=== PATIENT | female | born 1960 | race Caucasian/White ===

== ENCOUNTER 2016-07-16 18:52 | Inpatient (IN) ==
[2016-07-16 19:27] LABS: Bilirubin,Urine Negative (Negative); Blood,Urine Negative (Negative); Clarity,Urine Clear (Clear); Color,Urine Yellow (Yellow); Glucose,Urine (UA) Normal (Normal); Ketones,Urine Negative (Negative); Leukocyte Esterase,Urine Negative (Negative); Nitrite,Urine Negative (Negative); Protein,Urine Negative (Neg-Trace); Urobilinogen,Urine Normal (Normal)
[2016-07-16] MEDS ORDERED: *HR* OxyCODONE/APAP 5/325 TABLET PO ONE (19:29)
[2016-07-16 19:34] LABS: Amphetamine Screen,Urine Negative ng/mL (Cutoff=1000); Barbiturate Screen,Urine Negative ng/mL (Cutoff=200); Benzodiazepines Screen,Urine Positive ng/mL (Cutoff=200); Cannabinoid Screen,Urine Negative ng/mL (Cutoff = 50); Cocaine Screen,Urine Negative ng/mL (Cutoff= 300); Opiate Screen,Urine Negative ng/mL (Cutoff=300); Phencyclidine Screen,Urine Negative ng/mL (Cutoff=25)
[2016-07-16 19:38] LABS: Basophils % 0.2 %; Eosinophils # 0.1 K/mcL (0.0-0.6); Eosinophils % 0.9 %; Hemoglobin 13.8 g/dL (11.5-15.4); Immature Granulocytes % 0.4 % (0-4); Lymphocytes # 2.2 K/mcL (0.6-4.6); Lymphocytes % 40.1 %; Mean Corpuscular HGB Conc 32.9 g/dL (31.6-35.5); Mean Corpuscular Hemoglobin 30.7 pg (28.0-33.3); Mean Corpuscular Volume 93.5 fL (83.0-100.0); Mean Platelet Volume 10.6 fL (9.4-12.4); Monocytes # 0.4 K/mcL (0.0-1.3); Monocytes % 7.9 %; Neutrophils # 2.8 K/mcL (1.6-8.9); Platelet Count 260 K/mcL (140-400); Red Blood Count 4.49 M/mcL (3.82-4.97); Red Cell Distribution Width 13.3 % (11.5-14.5); Segmented Neutrophils % 50.5 %
[2016-07-16 19:53] LABS: BUN/Creatinine Ratio 7 (6-26); Calcium 10.1 mg/dL (8.6-10.8); Carbon Dioxide 30 mEq/L (19-29); Chloride 101 mEq/L (98-109); Glucose 92 mg/dL (70-99); Osmolality,Calculated 287 (280-300); Potassium 4.6 mEq/L (3.5-4.5); Sodium 140 mEq/L (136-145); eGFR For African Americans > 60 (> 60); eGFR For Non-African Americans > 60 (> 60)
[2016-07-16 19:56] LABS: Acetaminophen < 1.0 mcg/mL (10-30); Blood Urea Nitrogen 5 mg/dL (7-20); Ethanol < 10 mg/dL (0-10)
[2016-07-16 19:58] LABS: Salicylate < 5.0 mg/dL (15-30)
--- NOTE | 2016-07-16 20:21 | Emergency Department Note ---
Disposition Clinical Impression: Suicidal ideation Disposition: Admitted As Inpatient Condition: Good Time of Disposition: 22:45 Psych HPI - General Chief Complaint: ED Psychiatric Symptoms Stated Complaint: SI Source: patient Mode of arrival: ambulatory Limitations: no limitations Nursing Notes Reviewed: Yes Vital Signs Reviewed: Yes - History of Present Illness HPI Narrative: 56-year-old female who presents with concerns of suicidal ideation. Patient states she had thoughts about slitting her wrists called the emergency Department prior to arrival to see how long it would take her to if she slit her wrist. Patient denies ingestion of medications or other illicit drugs. Patient states he did not attempt to ambulate but had brought of multiple plans. Patient has a history of bipolar disorder. - Related Data Home Medications Medication Instructions Recorded Confirmed ClonazePAM [Klonopin] 1 mg PO QID 03/19/16 07/17/16 Divalproex (12 HR) [Depakote (12 1,000 mg PO HS 03/19/16 07/17/16 HR)] Doxepin [Sinequan] 150 mg PO HS 03/19/16 07/17/16 LevETIRAcetam [Keppra] 1,000 mg PO HS 03/19/16 07/17/16 Levothyroxine [Synthroid] 100 mcg PO DAILY 03/19/16 07/17/16 Oxycodone HCl 15 mg PO QID PRN 03/19/16 07/17/16 Ranitidine HCl [Zantac 75] 150 mg PO BID 03/19/16 07/17/16 Allergies Allergy/AdvReac Type Severity Reaction Status Date / Time diphenhydramine AdvReac See Verified 03/18/16 22:23 [From Pamela] Comments All systems ED: reviewed and negative except as stated. Constitutional: Denies: fever, chills, weakness Cardiovascular: Denies: chest pain, palpitations Respiratory: Denies: cough, dyspnea, wheezes Gastrointestinal: Denies: abdominal pain, nausea, vomiting Genitourinary: Denies: urgency, dysuria, frequency Musculoskeletal: Denies: back pain, neck pain Integumentary: Denies: rash, abrasion Neurological: Denies: headache, weakness, numbness Psychiatric: Reports: anxiety, depression, suicidal thoughts. Denies: homicidal thoughts Past Medical History - Past Medical History Attestation: Yes The following information was validated with the patient. Source: patient Medical history: Reports: no medical history Psychiatric history: Reports: bipolar, prior suicide attempt, previous psychiatric hospitalization - Social History Smoking Status: Current every day smoker Smokeless Tobacco Status: No Alcohol use: Reports: none Drug use: Reports: cocaine, opiates Physical Exam General: Alert and in no acute distress Skin: Warm, dry, intact Head: Normocephalic and atraumatic Neck: Supple, trachea midline and no tenderness Cardiovascular: RRR, no murmur, normal perfusion Respiratory: CTAB, no wheezing, cough, or respiratory distress Musculoskeletal: Normal strength, no tenderness, swelling or deformity GI: Soft, nontender, nondistended. Bowel sounds present Neuro: A&O to person, place, time and situation. No focal deficits noted on exam Psychiatric: cooperative and appropriate mood and affect. - General Limitations: no limitations General appearance: alert, in no apparent distress Course Vital Signs Temperature 98.3 F 07/16/16 19:15 Pulse Rate 93 07/16/16 19:15 Respiratory Rate 18 07/16/16 19:15 Blood Pressure 165/97 07/16/16 19:15 O2 Sat by Pulse Oximetry 96 07/16/16 19:15 Temperature 97.6 F 07/17/16 09:00 Pulse Rate 88 07/17/16 09:00 Respiratory Rate 16 07/17/16 09:00 Blood Pressure 111/74 07/17/16 09:00 O2 Sat by Pulse Oximetry 96 07/16/16 19:15 Oxygen Delivery Oxygen Delivery Room Air Psych - MDM Narrative Medical decision making narrative: Patient evaluated by [facility] and found to need admission for further evaluation of suicidal ideation. Awaiting for admission the patient became very agitated. She tried multiple times to run down the hallway to escape the emergency department she was warned multiple times that she needs to stay in her room. Patient became aggressive towards staff and was a danger to herself, she was sedated and restrained using Ativan, Haldol and soft restraints. Patient has an allergy to Benadryl which she states she became hypotensive. Patient was reevaluated multiple times after using sedation and restraints. She gradually became more calm and redirectable and she was eventually admitted to one with stable vital signs, awake, alert. - Medical Records Medical records reviewed: Yes I reviewed the patient's medical records. - Lab Data Lab results reviewed: Yes I reviewed the patient's lab results. Result diagrams: 07/16/16 19:32 07/16/16 19:32 Lab Results 07/16/16 07/16/16 07/16/16 Range/Units 18:55 18:55 19:32 WBC 5.5 (4.3-11.1) K/mcL RBC 4.49 (3.82-4.97) M/mcL Hgb 13.8 (11.5-15.4) g/dL Hct 42.0 (35.3-44.9) % MCV 93.5 (83.0-100.0) fL MCH 30.7 (28.0-33.3) pg MCHC 32.9 (31.6-35.5) g/dL RDW 13.3 (11.5-14.5) % Plt Count 260 (140-400) K/mcL MPV 10.6 (9.4-12.4) fL Immature Gran % 0.4 (0-4) % Seg Neutrophils % 50.5 % Lymphocytes % 40.1 % Monocytes % 7.9 % Eosinophils % 0.9 % Basophils % 0.2 % Neutrophils # 2.8 (1.6-8.9) K/mcL Lymphocytes # 2.2 (0.6-4.6) K/mcL Monocytes # 0.4 (0.0-1.3) K/mcL Eosinophils # 0.1 (0.0-0.6) K/mcL Basophils # 0.0 (0.0-0.2) K/mcL Sodium (136-145) mEq/L Potassium (3.5-4.5) mEq/L Chloride (98-109) mEq/L Carbon Dioxide (19-29) mEq/L BUN (7-20) mg/dL Creatinine (0.57-1.11) mg/dL Est GFR ( Amer) (> 60) Est GFR (Non-Af Amer) (> 60) BUN/Creatinine Ratio (6-26) Glucose (70-99) mg/dL Calculated Osmolality (280-300) Calcium (8.6-10.8) mg/dL Total Bilirubin (0.2-1.2) mg/dL Direct Bilirubin (0.0-0.5) mg/dL Indirect Bilirubin (0.0-1.2) mg/dL GGT (9-36) Units/L AST (5-34) Units/L ALT (0-55) Units/L Alkaline Phosphatase (38-126) Units/L Serum Total Protein (6.0-8.3) g/dL Albumin (3.5-5.0) g/dL Globulin (2.4-3.5) g/dL Albumin/Globulin Ratio (1.1-2.2) TSH (0.350-4.840) mcIU/mL Free T4 (0.70-1.48) ng/dl Total T3 (0.58-1.59) ng/mL Urine Color Yellow (Yellow) Urine Clarity Clear (Clear) Urine pH 7.0 (5.0-8.0) pH Units Ur Specific [place] 1.010 (1.010-1.025) Urine Protein Negative (Neg-Trace) mg/dL Urine Glucose (UA) Normal (Normal) mg/dL Urine Ketones Negative (Negative) mg/dL Urine Blood Negative (Negative) Urine Nitrite Negative (Negative) Urine Bilirubin Negative (Negative) Urine Urobilinogen Normal (Normal) mg/dL Ur Leukocyte Esterase Negative (Negative) Salicylates (15-30) mg/dL Urine Opiates Screen Negative (Mbkvmk=431) ng/mL Acetaminophen (10-30) mcg/mL Ur Barbiturates Screen Negative (Zvimmo=547) ng/mL Valproic Acid (50-100) mcg/mL Ur Phencyclidine Scrn Negative (Cutoff=25) ng/mL Ur Amphetamines Screen Negative (Jdonrl=5993) ng/mL U Benzodiazepines Scrn Positive H (Ssamxs=785) ng/mL Urine Cocaine Screen Negative (Cutoff= 300) ng/mL U Marijuana (THC) Screen Negative (Cutoff = 50) ng/mL Ethyl Alcohol (0-10) mg/dL 07/16/16 07/16/16 Range/Units 19:32 19:32 WBC (4.3-11.1) K/mcL RBC (3.82-4.97) M/mcL Hgb (11.5-15.4) g/dL Hct (35.3-44.9) % MCV (83.0-100.0) fL MCH (28.0-33.3) pg MCHC (31.6-35.5) g/dL RDW (11.5-14.5) % Plt Count (140-400) K/mcL MPV (9.4-12.4) fL Immature Gran % (0-4) % Seg Neutrophils % % Lymphocytes % % Monocytes % % Eosinophils % % Basophils % % Neutrophils # (1.6-8.9) K/mcL Lymphocytes # (0.6-4.6) K/mcL Monocytes # (0.0-1.3) K/mcL Eosinophils # (0.0-0.6) K/mcL Basophils # (0.0-0.2) K/mcL Sodium 140 (136-145) mEq/L Potassium 4.6 H (3.5-4.5) mEq/L Chloride 101 (98-109) mEq/L Carbon Dioxide 30 H (19-29) mEq/L BUN 5 L (7-20) mg/dL Creatinine 0.70 (0.57-1.11) mg/dL Est GFR ( Amer) > 60 (> 60) Est GFR (Non-Af Amer) > 60 (> 60) BUN/Creatinine Ratio 7 (6-26) Glucose 92 (70-99) mg/dL Calculated Osmolality 287 (280-300) Calcium 10.1 (8.6-10.8) mg/dL Total Bilirubin 0.1 L (0.2-1.2) mg/dL Direct Bilirubin < 0.1 (0.0-0.5) mg/dL Indirect Bilirubin 0.0 (0.0-1.2) mg/dL GGT 81 H (9-36) Units/L AST 23 (5-34) Units/L ALT 19 (0-55) Units/L Alkaline Phosphatase 69 (38-126) Units/L Serum Total Protein 7.7 (6.0-8.3) g/dL Albumin 3.6 (3.5-5.0) g/dL Globulin 4.1 H (2.4-3.5) g/dL Albumin/Globulin Ratio 0.9 L (1.1-2.2) TSH 0.318 L (0.350-4.840) mcIU/mL Free T4 0.95 (0.70-1.48) ng/dl Total T3 0.89 (0.58-1.59) ng/mL Urine Color (Yellow) Urine Clarity (Clear) Urine pH (5.0-8.0) pH Units Ur Specific [place] (1.010-1.025) Urine Protein (Neg-Trace) mg/dL Urine Glucose (UA) (Normal) mg/dL Urine Ketones (Negative) mg/dL Urine Blood (Negative) Urine Nitrite (Negative) Urine Bilirubin (Negative) Urine Urobilinogen (Normal) mg/dL Ur Leukocyte Esterase (Negative) Salicylates < 5.0 L (15-30) mg/dL Urine Opiates Screen (Eakkpg=825) ng/mL Acetaminophen < 1.0 L (10-30) mcg/mL Ur Barbiturates Screen (Xooulb=933) ng/mL Valproic Acid 42.72 L (50-100) mcg/mL Ur Phencyclidine Scrn (Cutoff=25) ng/mL Ur Amphetamines Screen (Cigtzw=5978) ng/mL U Benzodiazepines Scrn (Aazprw=395) ng/mL Urine Cocaine Screen (Cutoff= 300) ng/mL U Marijuana (THC) Screen (Cutoff = 50) ng/mL Ethyl Alcohol < 10 (0-10) mg/dL Psychiatric Medical Clearance - Medical Clearance Checklist Medical History: No Social History Section defined Current Vitals: Last Vital Signs Temp 97.6 F 07/17/16 09:00 Pulse 88 07/17/16 09:00 Resp 16 07/17/16 09:00 BP 111/74 07/17/16 09:00 Pulse Ox 96 07/16/16 19:15 Psychiatric Lab Panel: Drug Levels and Toxicity 07/16/16 07/16/16 18:55 19:32 Urine Opiates Screen Negative Acetaminophen < 1.0 L Ur Barbiturates Screen Negative Ur Phencyclidine Scrn Negative Ur Amphetamines Screen Negative U Benzodiazepines Scrn Positive H Urine Cocaine Screen Negative U Marijuana (THC) Screen Negative Ethyl Alcohol < 10 Abnormal Labs: Abnormal lab results Potassium 4.6 mEq/L (3.5-4.5) H 07/16/16 19:32 Carbon Dioxide 30 mEq/L (19-29) H 07/16/16 19:32 BUN 5 mg/dL (7-20) L 07/16/16 19:32 Total Bilirubin 0.1 mg/dL (0.2-1.2) L 07/16/16 19:32 GGT 81 Units/L (9-36) H 07/16/16 19:32 Globulin 4.1 g/dL (2.4-3.5) H 07/16/16 19:32 Albumin/Globulin Ratio 0.9 (1.1-2.2) L 07/16/16 19:32 TSH 0.318 mcIU/mL (0.350-4.840) L 07/16/16 19:32 Salicylates < 5.0 mg/dL (15-30) L 07/16/16 19:32 Acetaminophen < 1.0 mcg/mL (10-30) L 07/16/16 19:32 Valproic Acid 42.72 mcg/mL (50-100) L 07/16/16 19:32 U Benzodiazepines Scrn Positive ng/mL (Vimpnl=592) H 07/16/16 18:55 Statement of Medical Clearance: I have evaluated the patient, reviewed diagnostic information, and certify that the patient's medical condition is sufficiently stable that transfer to the psychiatric unit does not pose a significant risk of deterioration.
[2016-07-16 21:06] LABS: Valproate 42.72 mcg/mL (50-100)
[2016-07-16] MEDS ORDERED: Haloperidol Lactate 5 MG/ML VIAL ONE (21:54)
[2016-07-16] MEDS ORDERED: *HR* LORazepam 2 MG/ML VIAL ONE (21:55)
[2016-07-16] MEDS ORDERED: *HR* LORazepam 2 MG/ML VIAL IM ONE ×2 (21:55→22:34)
[2016-07-16] MEDS: Haloperidol Lactate 5 MG/ML VIAL IM ONE ×2 (22:01→22:49)
[2016-07-16] MEDS ORDERED: Nicotine 7 MG PATCH.TD24 TD SCH (22:03)
[2016-07-16] MEDS: Divalproex (12 HR) 500 MG TABLET PO SCH (23:07)
[2016-07-16] MEDS ORDERED: Ziprasidone injection 20 MG/ML VIAL IM ONE (23:07)
[2016-07-16] MEDS: Ziprasidone injection 20 MG/ML VIAL IM ONE ×2 (23:09→23:24)
[2016-07-16 23:23] LABS: Alanine Aminotransferase 19 Units/L (0-55); Albumin 3.6 g/dL (3.5-5.0); Albumin/Globulin Ratio 0.9 (1.1-2.2); Alkaline Phosphatase 69 Units/L (38-126); Aspartate Amino Transferase 23 Units/L (5-34); Bilirubin,Total 0.1 mg/dL (0.2-1.2); Globulin 4.1 g/dL (2.4-3.5); Total Protein 7.7 g/dL (6.0-8.3)
[2016-07-16 23:26] LABS: Bilirubin,Direct < 0.1 mg/dL (0.0-0.5)
[2016-07-16 23:39] LABS: Gamma Glutamyl Transpeptidase 81 Units/L (9-36)
[2016-07-16 23:44] LABS: Thyroid Stimulating Hormone 0.318 mcIU/mL (0.350-4.840); Triiodothyronine (T3) Total 0.89 ng/mL (0.58-1.59)
[2016-07-17] MEDS ORDERED: Haloperidol Lactate 5 MG/ML VIAL IM PRN (00:29)
[2016-07-17] MEDS ORDERED: traZODone 50 MG TABLET PO PRN (00:29)
[2016-07-17] MEDS ORDERED: *HR* LORazepam 1 MG TABLET PO PRN (00:29)
[2016-07-17] MEDS ORDERED: *HR* LORazepam 2 MG/ML VIAL IM PRN (00:29)
[2016-07-17] MEDS ORDERED: MOM Conc 10 ML UD.LIQ PO PRN (00:29)
[2016-07-17] MEDS ORDERED: hydrOXYzine pamoate 25 MG CAPSULE PO PRN (00:29)
[2016-07-17] MEDS ORDERED: *HR* OxyCODONE Immed Rel 15 MG TABLET PO PRN (00:36)
[2016-07-17] MEDS: Nicotine 21 MG PATCH.TD24 TD SCH ×2 (00:52→09:24)
[2016-07-17] MEDS: *HR* OxyCODONE Immed Rel 5 MG TABLET PO PRN ×4 (01:42→21:07)
[2016-07-17] MEDS: Famotidine 20 MG TABLET PO SCH ×2 (09:23→21:01)
[2016-07-17] MEDS: clonazePAM 1 MG TABLET PO SCH ×4 (09:23→21:01)
[2016-07-17] MEDS: Mag Hydrox/Al Hydrox/Simeth 30 ML UDC PO PRN (11:15)
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
[2016-07-17] MEDS ORDERED: Fluticasone Propionate Nasal 50 MCG/SPRAY BOTTLE NS SCH (15:29)
[2016-07-17] MEDS: levETIRAcetam 250 MG TABLET PO SCH (21:01)
[2016-07-17] MEDS: OXcarbazepine 150 MG TABLET PO SCH (21:01)
[2016-07-17] MEDS: Divalproex (12 HR) 500 MG TABLET PO SCH ×2 (21:02→21:20)
[2016-07-18] MEDS: Famotidine 20 MG TABLET PO SCH ×2 (08:26→21:09)
[2016-07-18] MEDS: clonazePAM 1 MG TABLET PO SCH ×4 (08:26→21:08)
[2016-07-18] MEDS: Nicotine 21 MG PATCH.TD24 TD SCH (08:28)
[2016-07-18] MEDS: OXcarbazepine 150 MG TABLET PO SCH ×2 (08:28→21:09)
[2016-07-18] MEDS: *HR* OxyCODONE Immed Rel 5 MG TABLET PO PRN ×3 (08:33→21:30)
--- NOTE | 2016-07-18 14:58 | Psychiatry Progress Note ---
Date of Encounter: 07/18/16 Time of Encounter: 13:30 Subjective Interval history: Patient is here for follow-up. I reviewed the notes medications and the staff reports. Staff reports she is medication seeking for opiates and not getting along with some of the patient. She is not suicidal and very focused on her physical complaints of chronic pain and traumatic history. I had a long discussion was had regarding activities and planning to work part-time or go to school to occupy her time and she seem to understand and interested. Review of Systems Psychiatric: Reports: depression, anxiety, abnormal sleep pattern, suicidal ideation, anhedonia, mood swings, panic attacks Objective: Exam Patient orientation: Yes Person, Yes Time, Yes Place, Yes Circumstance Level of alertness: Alert Patient appearance: Appropriate, Well Groomed, Well-nourished, Obese Behavior: cooperative, nervous, impulsive Psychomotor activity: Slowed Eye contact: Fleeting Contact Mood description: Depressed, Anxious, Labile, Irritable Affect description: congruent with mood, full range Speech pattern: Appropriate, Coherent, Slowed, Monotone Speech volume: Normal Thought process: Circumstantial, Tangential Thought content: Yes Suicidal ideation Perceptual disturbances: No Reacting to internal stimuli, No Auditory hallucinations, No Visual hallucinations Judgment: Limited Insight: Partial Results - Vital Signs Vital Signs: Temp Pulse Resp BP Pulse Ox 97.8 F 93 18 106/74 96 07/18/16 09:00 07/18/16 09:00 07/18/16 09:00 07/18/16 09:00 07/16/16 19:15 Assessment and Plan (1) Bipolar disorder with depression Current visit: No Status: Acute Plan: Continue hospitalization, Close observation, Suicide Precautions per unit protocol, Encourage participation in unit milieu, Group Therapy, Monitor sleep, Monitor appetite Consult Discharge Plan - Plan Referrals: [facility] [Outside] - 08/04/16 8:30 am (The above appointment is with Cara Westfall, psychiatric prescriber. You will also see Valorie Nino for counseling on 08/11/2016 @ 11:00am.)
[2016-07-18] MEDS: Ibuprofen 400 MG TABLET PO PRN (17:09)
[2016-07-18] MEDS: Fluticasone Propionate Nasal 50 MCG/SPRAY BOTTLE NS PRN (17:55)
[2016-07-18] MEDS: Divalproex (12 HR) 500 MG TABLET PO SCH (21:08)
[2016-07-18] MEDS: levETIRAcetam 250 MG TABLET PO SCH (21:09)
[2016-07-19] MEDS: *HR* OxyCODONE Immed Rel 5 MG TABLET PO PRN ×3 (07:36→20:04)
[2016-07-19] MEDS: MOM Conc 10 ML UD.LIQ PO PRN (08:11)
[2016-07-19] MEDS: OXcarbazepine 150 MG TABLET PO SCH ×2 (08:22→20:01)
[2016-07-19] MEDS: Famotidine 20 MG TABLET PO SCH ×2 (08:23→20:00)
[2016-07-19] MEDS: clonazePAM 1 MG TABLET PO SCH (08:23)
[2016-07-19] MEDS: Nicotine 21 MG PATCH.TD24 TD SCH (08:24)
--- NOTE | 2016-07-19 11:17 | Psychiatry Progress Note ---
Date of Encounter: 07/19/16 Time of Encounter: 11:00 Subjective Interval history: Patient is here for follow-up. Staff reports she continued to make suicidal statements and plans to kill himself by standing in front of a car. She is to start with by multiple stressors including financial and family and inability to drive due to the suspension of license. On review she displayed depressed mood and affect she was crying at times after discussion coping, skills and problem-solving she seemed to be more interested in working on her problems and stressors one by one and showing more insight. I reviewed her medication and were ordered a Depakote level checked, and adjust dose. Review of Systems Psychiatric: Reports: depression, anxiety, abnormal sleep pattern, suicidal ideation, anhedonia, mood swings, panic attacks Objective: Exam Patient orientation: Yes Person, Yes Time, Yes Place, Yes Circumstance Level of alertness: Alert Patient appearance: Appropriate, Well Groomed, Well-nourished, Obese Behavior: cooperative, nervous, tearful, dramatic Psychomotor activity: Slowed Eye contact: Fleeting Contact Mood description: Depressed, Anxious, Labile Affect description: congruent with mood, full range, constricted Speech pattern: Appropriate, Coherent, Slowed, Monotone Speech volume: Normal Thought process: Circumstantial, Tangential Thought content: Yes Suicidal ideation Perceptual disturbances: No Reacting to internal stimuli, No Auditory hallucinations, No Visual hallucinations Judgment: Limited Insight: Partial Results - Vital Signs Vital Signs: Temp Pulse Resp BP Pulse Ox 97.6 F 96 16 132/85 96 07/19/16 08:41 07/19/16 08:41 07/19/16 08:41 07/19/16 08:41 07/16/16 19:15 Assessment and Plan (1) Bipolar disorder with depression Current visit: No Status: Acute Plan: Continue hospitalization, Close observation, Suicide Precautions per unit protocol, Encourage participation in unit milieu, Group Therapy, Monitor sleep, Monitor appetite Risks, benefits, side effects, alternatives discussed w/pt: Yes Patient agreeable to treatment: Yes Consult Discharge Plan - Plan Referrals: Don[facility] [Outside] - 08/04/16 8:30 am (The above appointment is with Cara Westfall, psychiatric prescriber. You will also see Valorie Nino for counseling on 08/11/2016 @ 11:00am.)
[2016-07-19] MEDS: clonazePAM 0.5 MG TABLET PO SCH ×3 (12:33→20:00)
[2016-07-19] MEDS: Mag Hydrox/Al Hydrox/Simeth 30 ML UDC PO PRN ×2 (14:50→20:01)
[2016-07-19] MEDS: Fluticasone Propionate Nasal 50 MCG/SPRAY BOTTLE NS PRN (19:09)
[2016-07-19] MEDS: Ibuprofen 400 MG TABLET PO PRN (19:59)
[2016-07-19] MEDS: Divalproex (12 HR) 500 MG TABLET PO SCH (19:59)
[2016-07-19] MEDS: levETIRAcetam 250 MG TABLET PO SCH (20:00)
[2016-07-20] MEDS: Fluticasone Propionate Nasal 50 MCG/SPRAY BOTTLE NS PRN (06:29)
[2016-07-20] MEDS: *HR* OxyCODONE Immed Rel 5 MG TABLET PO PRN ×2 (07:10→12:53)
[2016-07-20] MEDS: clonazePAM 0.5 MG TABLET PO SCH ×2 (08:11→12:53)
[2016-07-20] MEDS: Famotidine 20 MG TABLET PO SCH (08:11)
[2016-07-20] MEDS: OXcarbazepine 150 MG TABLET PO SCH (08:11)
[2016-07-20] MEDS: MOM Conc 10 ML UD.LIQ PO PRN (08:11)
[2016-07-20] MEDS: Nicotine 21 MG PATCH.TD24 TD SCH (08:14)
[2016-07-20 08:32] VITALS: BP 139/72
[2016-07-20 11:06] LABS: BUN/Creatinine Ratio 13 (6-26); Blood Urea Nitrogen 9 mg/dL (7-20); Calcium 8.8 mg/dL (8.6-10.8); Carbon Dioxide 30 mEq/L (19-29); Chloride 99 mEq/L (98-109); Glucose 129 mg/dL (70-99); Osmolality,Calculated 282 (280-300); Potassium 4.2 mEq/L (3.5-4.5); Sodium 136 mEq/L (136-145); eGFR For African Americans > 60 (> 60); eGFR For Non-African Americans > 60 (> 60)
--- NOTE | 2016-07-20 11:24 | Discharge Summary ---
Date of Encounter: 07/20/16 Time of Encounter: 11:30 Diagnosis - Discharge Diagnosis (1) Bipolar disorder with depression Status: Acute Medications - Discharge Medications Prescriptions: Duloxetine [Cymbalta] 30 mg PO DAILY #30 capsule. Oxcarbazepine [Trileptal] 150 mg PO BID #60 tablet Divalproex (12 HR) [Depakote (12 HR)] 1,000 mg PO HS 03/19/16 [History] Doxepin [Sinequan] 150 mg PO HS 03/19/16 [History] LevETIRAcetam [Keppra] 1,000 mg PO HS 03/19/16 [History] Levothyroxine [Synthroid] 100 mcg PO DAILY 03/19/16 [History] Oxycodone HCl 15 mg PO QID PRN 03/19/16 [History] Ranitidine HCl [Zantac 75] 150 mg PO BID 03/19/16 [History] ClonazePAM [Klonopin] 0.5 mg PO QID tablet 07/20/16 [Rx] Duloxetine [Cymbalta] 30 mg PO DAILY #30 capsule. 07/20/16 [Rx] Oxcarbazepine [Trileptal] 150 mg PO BID #60 tablet 07/20/16 [Rx] Allergies diphenhydramine [From Benadryl] Adverse Reaction (Verified 03/18/16 22:23) See Comments Results Procedures and tests throughout hospitalization: Completed Lab Orders Category Date Time Status Chem 7 [Basic Metabolic Panel] Routine Lab 07/20/16 10:42 Completed Valproate Routine Lab 07/17/16 12:34 Completed Valproate Routine Lab 07/19/16 12:14 Completed Provider Date of admission: 07/16/16 23:56 Primary care physician: PCP NO Discharging clinician: Emerson Miranda Assessment and Plan - Patient/Caregiver Discharge Instructions Activity: resume usual activities as tolerated Diet: regular diet - Follow up Plan Follow up with: Doni Fisher [facility] [Outside] - 08/04/16 8:30 am (The above appointment is with Cara Westfall, psychiatric prescriber. You will also see Valorie Nino for counseling on 08/11/2016 @ 11:00am.) Functional capacity at discharge: independent ambulation Overall status at discharge: Stable Disposition: Home, Self-Care Hospital Course Hospital course: Ms. Power is a 56 year old female admitted from the emergency room for depression and suicidal ideation. For details of the admission please see H&P On the unit patient was compliant with medication, she participated in groups and activities. Her medication were reviewed and medication changes were made by adding Cymbalta and Trileptal patient responded and tolerated those medications or side effects she reported improved sleep and improved energy and mood. Depakote level was checked and it was therapeutic. Prior to discharge patient was medically stable, nonsuicidal, optimistic and and she was able to write down her activities after discharge to stay busy and productive. - Time Spent with Patient Total time spent providing and/or coordinating discharge services: Greater than 30 minutes Quality - Multiple Antipsychotics Patient discharged on 2 or more antipsychotic medications: No Mental Status Exam - Mental Status Exam Patient orientation: Yes Person, Yes Time, Yes Place, Yes Circumstance Level of alertness: Alert Patient appearance: Appropriate, Well Groomed, Well-nourished, Obese Behavior: cooperative, nervous, tearful, dramatic Psychomotor activity: Normal Eye contact: Maintains Eye Contact Mood description: Euthymic/stable, Anxious, Labile Affect description: congruent with mood, full range, constricted Speech pattern: Normal rate, Normal rhythm, Normal tone, Appropriate, Coherent Speech Volume: Normal Thought process: Intact, Logical, Linear, Goal Oriented, Circumstantial Thought Content: No Suicidal ideation Perceptual Disturbances: No Reacting to internal stimuli, No Auditory hallucinations, No Visual hallucinations Judgment: Limited Insight: Partial
== END 2016-07-20 13:00 | disposition home or self-care (01) | DRG 753 ==
LOC: EMEROO 18:52 → SUATTDRO 23:56 → 1ANU 23:56
PROVIDERS: ADMIT Psychiatry & Neurology Psychiatry; ATTEND Psychiatry & Neurology Psychiatry

== ENCOUNTER 2017-06-18 12:09 | Inpatient (IN) ==
--- NOTE | 2017-06-18 12:33 | Emergency Department Note ---
Disposition Clinical Impression: Suicidal ideation Depression Qualifiers: Depression Type: unspecified Qualified Code(s): F32.9 - Major depressive disorder, single episode, unspecified Disposition: Admitted As Inpatient Condition: Fair Referrals: NONE,PCP [Primary Care Provider] - Forms: ED Satisfaction Letter Time of Disposition: 15:49 Psych HPI - General Chief Complaint: ED Psychiatric Symptoms Stated Complaint: SI Time Seen by Provider: 06/18/17 12:29 Source: patient Mode of arrival: ambulatory Limitations: no limitations Nursing Notes Reviewed: Yes Vital Signs Reviewed: Yes - History of Present Illness HPI Narrative: Pt with history of PTSD and states she feels like she is dying inside. Pt complaint: suicidal ideation, feels depressed If medical clearance, reason: psychiatric condition Onset (ago): Just ENDBANDER Duration: constant History of similar episodes: Yes Improves with: none Worsens with: none Context: significant life stressor Alleged intoxication: No Associated Psychiatric Symptoms: depression Associated symptoms: Reports: denies other symptoms Traumatic symptoms: denies traumatic injury Treatments prior to arrival: none - Related Data Home Medications Medication Instructions Recorded Confirmed Divalproex (12 HR) [Depakote (12 1,500 mg PO HS 03/19/16 04/18/17 HR)] Doxepin [Sinequan] 50 mg PO HS 03/19/16 04/18/17 Levothyroxine [Synthroid] 100 mcg PO QAM 03/19/16 04/18/17 Oxycodone HCl 15 mg PO QID PRN 03/19/16 04/18/17 Ranitidine HCl [Zantac 75] 150 mg PO BID 03/19/16 04/18/17 Cyclobenzaprine [Flexeril] 10 mg PO HS 04/18/17 04/18/17 Ergocalciferol (VITAMIN D2) 400 unit PO DAILY 04/18/17 04/18/17 [Vitamin D] Fluticasone Propionate Nasal 50 mcg NS DAILY PRN 04/18/17 04/18/17 [Flonase] Metoclopramide HCl 5 mg PO BID 04/18/17 04/18/17 Pantoprazole Sodium 40 mg PO DAILY 04/18/17 04/18/17 Prazosin [Minipress] 1 mg PO HS 04/18/17 Propranolol [Inderal] 10 mg PO BID 04/18/17 Allergies Allergy/AdvReac Type Severity Reaction Status Date / Time diphenhydramine AdvReac See Verified 04/18/17 20:13 [From Pamela] Comments All systems ED: reviewed and negative except as stated. Constitutional: Denies: fever, chills, weakness, weight change Eyes: Denies: eye pain, eye discharge, vision change ENT ED: Denies: ear pain, throat pain, dental pain, hearing loss, epistaxis, congestion, dysphagia Cardiovascular: Denies: chest pain, palpitations, dyspnea on exertion, edema, syncope Respiratory: Denies: cough, dyspnea, wheezes, hemoptysis, stridor Gastrointestinal: Denies: abdominal pain, nausea, vomiting, diarrhea, constipation, hematemesis, melena, hematochezia Genitourinary: Denies: dysuria, frequency, hematuria, discharge Musculoskeletal: Denies: back pain, neck pain, arthralgia, myalgia Integumentary: Denies: rash, abrasion, lesions Neurological: Denies: headache, weakness, numbness, paresthesias, confusion, abnormal gait, vertigo Psychiatric: Reports: suicidal thoughts. Denies: anxiety, depression, homicidal thoughts, auditory hallucinations, visual hallucinations Endocrine: Denies: fatigue Hematological/Lymphatic: Denies: easy bleeding, easy bruising Allergic/Immunologic: Denies: facial swelling, urticaria Past Medical History - Past Medical History Medical history: Reports: seizures Psychiatric history: Reports: bipolar, prior suicide attempt, previous psychiatric hospitalization - Social History Smoking Status: Current every day smoker Smokeless Tobacco Status: No Alcohol use: Reports: none Drug use: Reports: cocaine Physical Exam - General Limitations: no limitations General appearance: alert - Head Head exam: atraumatic, normocephalic, normal inspection - Eye Eye exam: Present: normal appearance, PERRL, EOMI - ENT ENT exam: normal exam, normal oropharynx, mucous membranes moist - Neck Neck exam: Present: normal inspection, full ROM, trachea midline - Chest Chest inspection: Present: normal inspection, symmetric chest wall rise - Respiratory Respiratory exam: Present: normal lung sounds bilaterally - Cardiovascular Cardiovascular exam: Present: regular rate, normal rhythm, normal heart sounds - Abdominal Exam Abdominal exam: Present: soft, Non-Tender. Absent: tenderness, distention, guarding, rebound, rigidity - Extremities Exam Extremities exam: Present: normal inspection, full ROM. Absent: tenderness, pedal edema - Expanded Lower Extremity Exam Neurovascular/Tendon exam: Absent: motor deficit, sensory deficit, tendon deficit Gait: observed and normal - Back Exam Back exam: Present: normal inspection, full ROM. Absent: tenderness - Neurological Exam Neurological exam: Present: alert, oriented X3 - Psychiatric Psychiatric exam: Present: normal affect, normal mood - Skin Skin exam: Present: warm, dry, intact, normal color Course - Reevaluation(s) Reevaluation #1: The patient with depression with suicidal ideation. He admitted. Time: 15:47 - Consultations Consultation #1: Accepted by 1A Time: 15:48 Vital Signs Temperature 97.8 F 06/18/17 12:18 Pulse Rate 95 06/18/17 12:18 Respiratory Rate 18 06/18/17 12:18 Blood Pressure 164/90 06/18/17 12:18 O2 Sat by Pulse Oximetry 99 06/18/17 12:18 Temperature 97.8 F 06/18/17 12:18 Pulse Rate 95 06/18/17 12:18 Respiratory Rate 18 06/18/17 12:18 Blood Pressure 164/90 06/18/17 12:18 O2 Sat by Pulse Oximetry 99 06/18/17 12:18 Oxygen Delivery Oxygen Delivery Room Air Psych - Lab Data Result diagrams: 06/18/17 12:37 06/18/17 12:37 Lab Results 06/18/17 06/18/17 06/18/17 Range/Units 12:37 12:37 12:48 WBC 5.5 (4.3-11.1) K/mcL RBC 4.85 (3.82-4.97) M/mcL Hgb 15.0 (11.5-15.4) g/dL Hct 45.4 H (35.3-44.9) % MCV 93.6 (83.0-100.0) fL MCH 30.9 (28.0-33.3) pg MCHC 33.0 (31.6-35.5) g/dL RDW 13.6 (11.5-14.5) % Plt Count 269 (140-400) K/mcL MPV 10.8 (9.4-12.4) fL Immature Gran % 0.2 (0-4) % Seg Neutrophils % 44.4 % Lymphocytes % 46.2 % Monocytes % 8.4 % Eosinophils % 0.4 % Basophils % 0.4 % Neutrophils # 2.4 (1.6-8.9) K/mcL Lymphocytes # 2.5 (0.6-4.6) K/mcL Monocytes # 0.5 (0.0-1.3) K/mcL Eosinophils # 0.0 (0.0-0.6) K/mcL Basophils # 0.0 (0.0-0.2) K/mcL Immature Plt Fraction 8.7 H (1.1-6.1) % Sodium 137 (136-145) mEq/L Potassium 3.7 (3.5-5.1) mEq/L Chloride 100 (98-107) mEq/L Carbon Dioxide 27 (23-29) mEq/L BUN 13 (6-20) mg/dL Creatinine 0.74 (0.60-1.20) mg/dL Est GFR ( Amer) > 60 (> 60) Est GFR (Non-Af Amer) > 60 (> 60) BUN/Creatinine Ratio 18 (6-26) Glucose 113 H (70-105) mg/dL Calculated Osmolality 285 (280-300) Calcium 10.3 (8.6-10.3) mg/dL Urine Color Dark Yellow (Yellow) Urine Clarity Cloudy A (Clear) Urine pH 6.0 (5.0-8.0) pH Units Ur Specific [place] 1.030 H (1.010-1.025) Urine Protein 30 H (Neg-Trace) mg/dL Urine Glucose (UA) Normal (Normal) mg/dL Urine Ketones 15 H (Negative) mg/dL Urine Blood Negative (Negative) Urine Nitrite Negative (Negative) Urine Bilirubin Small H (Negative) Urine Urobilinogen Normal (Normal) mg/dL Ur Leukocyte Esterase Trace H (Negative) Urine Microscopic RBC 5-15 H (0-3) per hpf Urine Microscopic WBC 3-5 H (0-3) per hpf Ur Squamous Epith Cells Many H (None-Few) per lpf Urine Bacteria Few (None-Few) per hpf Hyaline Casts None Seen (None-Few) per lpf Salicylates < 5.0 L (15.0-30.0) mg/dL Urine Opiates Screen (Dzleyi=984) ng/mL Acetaminophen < 1.0 L (10-30) mcg/mL Ur Barbiturates Screen (Gownfx=803) ng/mL Ur Phencyclidine Scrn (Cutoff=25) ng/mL Ur Amphetamines Screen (Latwfr=0646) ng/mL U Benzodiazepines Scrn (Fogjzt=508) ng/mL Urine Cocaine Screen (Cutoff= 300) ng/mL U Marijuana (THC) Screen (Cutoff = 50) ng/mL Ethyl Alcohol < 10 (0-10) mg/dL 06/18/17 Range/Units 12:48 WBC (4.3-11.1) K/mcL RBC (3.82-4.97) M/mcL Hgb (11.5-15.4) g/dL Hct (35.3-44.9) % MCV (83.0-100.0) fL MCH (28.0-33.3) pg MCHC (31.6-35.5) g/dL RDW (11.5-14.5) % Plt Count (140-400) K/mcL MPV (9.4-12.4) fL Immature Gran % (0-4) % Seg Neutrophils % % Lymphocytes % % Monocytes % % Eosinophils % % Basophils % % Neutrophils # (1.6-8.9) K/mcL Lymphocytes # (0.6-4.6) K/mcL Monocytes # (0.0-1.3) K/mcL Eosinophils # (0.0-0.6) K/mcL Basophils # (0.0-0.2) K/mcL Immature Plt Fraction (1.1-6.1) % Sodium (136-145) mEq/L Potassium (3.5-5.1) mEq/L Chloride (98-107) mEq/L Carbon Dioxide (23-29) mEq/L BUN (6-20) mg/dL Creatinine (0.60-1.20) mg/dL Est GFR ( Amer) (> 60) Est GFR (Non-Af Amer) (> 60) BUN/Creatinine Ratio (6-26) Glucose (70-105) mg/dL Calculated Osmolality (280-300) Calcium (8.6-10.3) mg/dL Urine Color (Yellow) Urine Clarity (Clear) Urine pH (5.0-8.0) pH Units Ur Specific [place] (1.010-1.025) Urine Protein (Neg-Trace) mg/dL Urine Glucose (UA) (Normal) mg/dL Urine Ketones (Negative) mg/dL Urine Blood (Negative) Urine Nitrite (Negative) Urine Bilirubin (Negative) Urine Urobilinogen (Normal) mg/dL Ur Leukocyte Esterase (Negative) Urine Microscopic RBC (0-3) per hpf Urine Microscopic WBC (0-3) per hpf Ur Squamous Epith Cells (None-Few) per lpf Urine Bacteria (None-Few) per hpf Hyaline Casts (None-Few) per lpf Salicylates (15.0-30.0) mg/dL Urine Opiates Screen Negative (Egulpr=489) ng/mL Acetaminophen (10-30) mcg/mL Ur Barbiturates Screen Negative (Dyghsn=756) ng/mL Ur Phencyclidine Scrn Negative (Cutoff=25) ng/mL Ur Amphetamines Screen Negative (Yqpkby=8920) ng/mL U Benzodiazepines Scrn Positive H (Kdgaeb=445) ng/mL Urine Cocaine Screen Positive H (Cutoff= 300) ng/mL U Marijuana (THC) Screen Negative (Cutoff = 50) ng/mL Ethyl Alcohol (0-10) mg/dL Psychiatric Medical Clearance - Medical Clearance Checklist Medical History: Suicidal ideation (Acute) Bipolar disorder with depression (Acute) Anxiety (Acute) Antisocial personality disorder (Acute) Acute anxiety (Inactive) Acute anxiety (Inactive) Cocaine abuse (Inactive) Depression (Inactive) Homicidal ideation (Inactive) Hyperthyroidism (Inactive) Hypokalemia (Inactive) Wrist injury (Inactive) No Social History Section defined Current Vitals: Last Vital Signs Temp 97.8 F 06/18/17 12:18 Pulse 95 06/18/17 12:18 Resp 18 06/18/17 12:18 BP 164/90 06/18/17 12:18 Pulse Ox 99 06/18/17 12:18 Psychiatric Lab Panel: Drug Levels and Toxicity 06/18/17 06/18/17 12:37 12:48 Urine Opiates Screen Negative Acetaminophen < 1.0 L Ur Barbiturates Screen Negative Ur Phencyclidine Scrn Negative Ur Amphetamines Screen Negative U Benzodiazepines Scrn Positive H Urine Cocaine Screen Positive H U Marijuana (THC) Screen Negative Ethyl Alcohol < 10 Abnormal Labs: Abnormal lab results Hct 45.4 % (35.3-44.9) H 06/18/17 12:37 Immature Plt Fraction 8.7 % (1.1-6.1) H 06/18/17 12:37 Glucose 113 mg/dL (70-105) H 06/18/17 12:37 Urine Clarity Cloudy (Clear) A 06/18/17 12:48 Ur Specific [place] 1.030 (1.010-1.025) H 06/18/17 12:48 Urine Protein 30 mg/dL (Neg-Trace) H 06/18/17 12:48 Urine Ketones 15 mg/dL (Negative) H 06/18/17 12:48 Urine Bilirubin Small (Negative) H 06/18/17 12:48 Ur Leukocyte Esterase Trace (Negative) H 06/18/17 12:48 Urine Microscopic RBC 5-15 per hpf (0-3) H 06/18/17 12:48 Urine Microscopic WBC 3-5 per hpf (0-3) H 06/18/17 12:48 Ur Squamous Epith Cells Many per lpf (None-Few) H 06/18/17 12:48 Salicylates < 5.0 mg/dL (15.0-30.0) L 06/18/17 12:37 Acetaminophen < 1.0 mcg/mL (10-30) L 06/18/17 12:37 U Benzodiazepines Scrn Positive ng/mL (Zlsgpr=935) H 06/18/17 12:48 Urine Cocaine Screen Positive ng/mL (Cutoff= 300) H 06/18/17 12:48 Statement of Medical Clearance: I have evaluated the patient, reviewed diagnostic information, and certify that the patient's medical condition is sufficiently stable that transfer to the psychiatric unit does not pose a significant risk of deterioration.
[2017-06-18 12:44] LABS: Basophils % 0.4 %; Eosinophils % 0.4 %; Hematocrit 45.4 % (35.3-44.9); Immature Granulocytes % 0.2 % (0-4); Immature Platelets 8.7 % (1.1-6.1); Lymphocytes # 2.5 K/mcL (0.6-4.6); Lymphocytes % 46.2 %; Mean Corpuscular Hemoglobin 30.9 pg (28.0-33.3); Mean Corpuscular Volume 93.6 fL (83.0-100.0); Mean Platelet Volume 10.8 fL (9.4-12.4); Monocytes # 0.5 K/mcL (0.0-1.3); Monocytes % 8.4 %; Neutrophils # 2.4 K/mcL (1.6-8.9); Platelet Count 269 K/mcL (140-400); Red Blood Count 4.85 M/mcL (3.82-4.97); Red Cell Distribution Width 13.6 % (11.5-14.5); Segmented Neutrophils % 44.4 %
[2017-06-18] MEDS ORDERED: *HR* LORazepam 2 MG/ML VIAL IM STA ×2 (12:51→16:16)
[2017-06-18 12:57] LABS: Bilirubin,Urine Small (Negative); Blood,Urine Negative (Negative); Clarity,Urine Cloudy (Clear); Color,Urine Dark Yellow (Yellow); Glucose,Urine (UA) Normal (Normal); Ketones,Urine 15 mg/dL (Negative); Leukocyte Esterase,Urine Trace (Negative); Nitrite,Urine Negative (Negative); Protein,Urine 30 mg/dL (Neg-Trace); Urobilinogen,Urine Normal (Normal)
[2017-06-18 13:00] LABS: Bacteria,Urine Few per hpf (None-Few); Hyaline Casts,Urine None Seen per lpf (None-Few); Squamous Epithelial Cell,Urine Many per lpf (None-Few)
[2017-06-18 13:00] LABS: Acetaminophen < 1.0 mcg/mL (10-30); BUN/Creatinine Ratio 18 (6-26); Blood Urea Nitrogen 13 mg/dL (6-20); Calcium 10.3 mg/dL (8.6-10.3); Carbon Dioxide 27 mEq/L (23-29); Chloride 100 mEq/L (98-107); Ethanol < 10 mg/dL (0-10); Glucose 113 mg/dL (70-105); Osmolality,Calculated 285 (280-300); Potassium 3.7 mEq/L (3.5-5.1); Salicylate < 5.0 mg/dL (15.0-30.0); Sodium 137 mEq/L (136-145); eGFR For African Americans > 60 (> 60); eGFR For Non-African Americans > 60 (> 60)
[2017-06-18 13:03] LABS: Amphetamine Screen,Urine Negative ng/mL (Cutoff=1000); Barbiturate Screen,Urine Negative ng/mL (Cutoff=200); Benzodiazepines Screen,Urine Positive ng/mL (Cutoff=200); Cannabinoid Screen,Urine Negative ng/mL (Cutoff = 50); Cocaine Screen,Urine Positive ng/mL (Cutoff= 300); Opiate Screen,Urine Negative ng/mL (Cutoff=300); Phencyclidine Screen,Urine Negative ng/mL (Cutoff=25)
[2017-06-18] MEDS ORDERED: Nicotine 21 MG PATCH.TD24 TD STA (14:52)
[2017-06-18] MEDS ORDERED: Mag Hydrox/Al Hydrox/Simeth 30 ML UDC PO PRN (17:07)
[2017-06-18] MEDS ORDERED: MOM Conc 10 ML UD.LIQ PO PRN (17:07)
[2017-06-18] MEDS ORDERED: Haloperidol Lactate 5 MG/ML VIAL IM PRN (17:07)
[2017-06-18] MEDS ORDERED: *HR* LORazepam 1 MG TABLET PO PRN (17:07)
[2017-06-18] MEDS ORDERED: *HR* LORazepam 2 MG/ML VIAL IM PRN (17:07)
[2017-06-18 18:11] LABS: Valproate 86 mcg/mL (50-100)
[2017-06-18] MEDS: Divalproex (12 HR) 500 MG TABLET PO SCH (21:07)
[2017-06-18] MEDS: *HR* OxyCODONE Immed Rel 15 MG TABLET PO PRN (21:09)
[2017-06-18] MEDS: traZODone 50 MG TABLET PO PRN (21:09)
[2017-06-19] MEDS: Fluticasone Propionate Nasal 50 MCG/SPRAY BOTTLE NS PRN (05:05)
[2017-06-19] MEDS: Ibuprofen 400 MG TABLET PO PRN (05:06)
[2017-06-19] MEDS: *HR* OxyCODONE Immed Rel 15 MG TABLET PO PRN ×4 (07:37→22:25)
[2017-06-19] MEDS: Nicotine 21 MG PATCH.TD24 TD SCH (08:33)
[2017-06-19] MEDS: Divalproex (12 HR) 250 MG TABLET PO SCH (08:34)
[2017-06-19] MEDS: Cholecalciferol (D-3) 1,000 UNIT TABLET PO SCH (08:34)
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
[2017-06-19] MEDS: Divalproex (12 HR) 500 MG TABLET PO SCH (20:35)
[2017-06-19] MEDS: traZODone 50 MG TABLET PO PRN (20:35)
[2017-06-20] MEDS: Ibuprofen 400 MG TABLET PO PRN ×2 (06:11→14:13)
[2017-06-20] MEDS: Fluticasone Propionate Nasal 50 MCG/SPRAY BOTTLE NS PRN (06:13)
[2017-06-20] MEDS: *HR* OxyCODONE Immed Rel 15 MG TABLET PO PRN ×4 (06:25→21:29)
[2017-06-20] MEDS: Divalproex (12 HR) 250 MG TABLET PO SCH (08:39)
[2017-06-20] MEDS: Cholecalciferol (D-3) 1,000 UNIT TABLET PO SCH (08:41)
[2017-06-20] MEDS: Nicotine 21 MG PATCH.TD24 TD SCH (08:41)
--- NOTE | 2017-06-20 15:25 | Psychiatry Progress Note ---
Date of Encounter: 06/20/17 Time of Encounter: 15:22 Subjective Interval history: Client reports she is still struggling with depression and suicidal thoughts. However, she is more future oriented. Looking forward to joining a [employer] with her mother. Took the Cymbalta this morning. Said it made her nauseous and sleepy but wants to give it another try tomorrow. Slept most of the morning. Staff report she is typically good about attending groups when she is here but did not today. Staff are getting her relinked with a prescriber. Client wants Klonopin and tends to leave doctors who are unwilling to prescribe this medication. However, she has been open to alternatives this hospitalization. Review of Systems Constitutional: Denies: fever, chills, weakness, weight change Eyes: Denies: eye pain, vision change Ears, Nose, Throat: Denies: ear pain, throat pain, dental pain, hearing loss, congestion Cardiovascular: Denies: chest pain, palpitations, dyspnea on exertion Respiratory: Denies: cough, dyspnea, wheezes Gastrointestinal: Denies: abdominal pain, nausea, vomiting, diarrhea, constipation Musculoskeletal: Denies: joint swelling, joint pain Neurological: Denies: headache, weakness, numbness, memory loss Objective: Exam Patient orientation: Yes Person, Yes Time, Yes Place Level of alertness: Alert Patient appearance: Appropriate Behavior: calm, cooperative Psychomotor activity: Normal Eye contact: Maintains Eye Contact Mood description: Depressed Affect description: congruent with mood Speech pattern: Normal rate, Normal rhythm, Normal tone Speech volume: Normal Thought process: Linear Thought content: Yes Suicidal ideation, No Homicidal ideation, No Overt delusions Perceptual disturbances: No Auditory hallucinations, No Visual hallucinations Judgment: Fair Insight: Partial Results - Vital Signs Vital Signs: Temp Pulse Resp BP Pulse Ox 96.5 F L 93 16 118/77 95 06/20/17 09:00 06/20/17 09:00 06/20/17 09:00 06/20/17 09:00 06/18/17 16:46 Assessment and Plan (1) Bipolar disorder with depression Current visit: No Status: Acute Plan: Continue hospitalization, Close observation, Suicide Precautions per unit protocol, Encourage participation in unit milieu, Group Therapy, Monitor sleep, Monitor appetite Risks, benefits, side effects, alternatives discussed w/pt: Yes Patient agreeable to treatment: Yes (2) Post traumatic stress disorder (PTSD) Current visit: Yes Status: Acute Plan: Continue hospitalization, Close observation, Suicide Precautions per unit protocol, Encourage participation in unit milieu, Group Therapy, Monitor sleep, Monitor appetite Risks, benefits, side effects, alternatives discussed w/pt: Yes Patient agreeable to treatment: Yes Consult Discharge Plan - Plan Referrals: Doni Fisher [facility] [Outside] - 06/22/17 9:00 am (The above appointment is with Valorie Byrd for outpatient mental health counseling services.) Gonzalo Lopez CNP [Advanced Practice Nurse] - 07/21/17 3:00 pm (The above appointment is with Macie Lopez for outpatient psychiatric assessment and medication management services. Please arrived 10 minutes early to complete the registration process. Please bring your photo ID and insurance card. This is the first available new patient appointment. You may contact the office regularly to check for cancellations that may allow you to be seen sooner.)
[2017-06-20] MEDS: Divalproex (12 HR) 500 MG TABLET PO SCH (21:24)
[2017-06-21] MEDS: *HR* OxyCODONE Immed Rel 15 MG TABLET PO PRN ×4 (07:10→21:09)
[2017-06-21] MEDS: Nicotine 21 MG PATCH.TD24 TD SCH (08:55)
[2017-06-21] MEDS: Cholecalciferol (D-3) 1,000 UNIT TABLET PO SCH (08:56)
[2017-06-21] MEDS: Divalproex (12 HR) 250 MG TABLET PO SCH (08:56)
--- NOTE | 2017-06-21 12:42 | Psychiatry Progress Note ---
Date of Encounter: 06/21/17 Time of Encounter: 12:39 Subjective Interval history: Client states she is still really struggling with her emotions. She continues to endorse SI and now states she feels HI toward some of the other patients. Denies intent or plan to harm anyone but she feels shocked by her feelings as she says she is not an aggressor and she can't understand why she would feel this way toward other people with mental health issues. Doesn't notice much difference with the Cymbalta. Since she is still at a starting dose will increase it today. It's possible this medication is making her feel more aggressive but doubt that is the case. Client has some future orientation but her past keeps her depressed and feeling hopeless. Review of Systems Constitutional: Denies: fever, chills, weakness, weight change Eyes: Denies: eye pain, vision change Ears, Nose, Throat: Denies: ear pain, throat pain, dental pain, hearing loss, congestion Cardiovascular: Denies: chest pain, palpitations, dyspnea on exertion Respiratory: Denies: cough, dyspnea, wheezes Gastrointestinal: Denies: abdominal pain, nausea, vomiting, diarrhea, constipation Musculoskeletal: Denies: joint swelling, joint pain Neurological: Denies: headache, weakness, numbness, memory loss Objective: Exam Patient orientation: Yes Person, Yes Time, Yes Place Level of alertness: Alert Patient appearance: Appropriate Behavior: calm, cooperative Psychomotor activity: Normal Eye contact: Maintains Eye Contact Mood description: Depressed, Irritable Affect description: congruent with mood Speech pattern: Normal rate, Normal rhythm, Normal tone Speech volume: Normal Thought process: Linear Thought content: Yes Suicidal ideation, Yes Homicidal ideation Perceptual disturbances: No Auditory hallucinations, No Visual hallucinations Judgment: Fair Insight: Partial Results - Vital Signs Vital Signs: Temp Pulse Resp BP Pulse Ox 97.2 F L 99 18 120/77 95 06/21/17 09:00 06/21/17 09:00 06/21/17 09:00 06/21/17 09:00 06/18/17 16:46 Assessment and Plan (1) Bipolar disorder with depression Current visit: No Status: Acute Plan: Continue hospitalization, Close observation, Suicide Precautions per unit protocol, Encourage participation in unit milieu, Group Therapy, Monitor sleep, Monitor appetite Risks, benefits, side effects, alternatives discussed w/pt: Yes Patient agreeable to treatment: Yes (2) Post traumatic stress disorder (PTSD) Current visit: Yes Status: Acute Plan: Continue hospitalization, Close observation, Suicide Precautions per unit protocol, Encourage participation in unit milieu, Group Therapy, Monitor sleep, Monitor appetite Risks, benefits, side effects, alternatives discussed w/pt: Yes Patient agreeable to treatment: Yes Consult Discharge Plan - Plan Referrals: Doni Conroy [facility] [Outside] - 06/22/17 9:00 am (The above appointment is with Valorie Byrd for outpatient mental health counseling services.) Gonzalo Lopez CNP [Advanced Practice Nurse] - 07/21/17 3:00 pm (The above appointment is with Macie Lopez for outpatient psychiatric assessment and medication management services. Please arrived 10 minutes early to complete the registration process. Please bring your photo ID and insurance card. This is the first available new patient appointment. You may contact the office regularly to check for cancellations that may allow you to be seen sooner.)
[2017-06-21] MEDS: Fluticasone Propionate Nasal 50 MCG/SPRAY BOTTLE NS PRN (14:23)
[2017-06-21] MEDS ORDERED: Artificial Tears SOLN 15 ML BOTTLE BOTH EYES SCH (17:00)
[2017-06-21] MEDS: Artificial Tears SOLN 15 ML BOTTLE BOTH EYES PRN (18:25)
[2017-06-21] MEDS: Divalproex (12 HR) 500 MG TABLET PO SCH (21:05)
[2017-06-22] MEDS: Fluticasone Propionate Nasal 50 MCG/SPRAY BOTTLE NS PRN ×2 (07:15→21:47)
[2017-06-22] MEDS: *HR* OxyCODONE Immed Rel 15 MG TABLET PO PRN ×4 (07:15→21:45)
[2017-06-22] MEDS: Nicotine 21 MG PATCH.TD24 TD SCH (10:17)
[2017-06-22] MEDS: Cholecalciferol (D-3) 1,000 UNIT TABLET PO SCH (10:17)
[2017-06-22] MEDS: Divalproex (12 HR) 250 MG TABLET PO SCH (10:17)
--- NOTE | 2017-06-22 17:18 | Psychiatry Progress Note ---
Date of Encounter: 06/22/17 Time of Encounter: 17:11 Subjective Interval history: Client reports she is starting to feel better. Initially said she was "about the same" but then admitted SI and HI have lessened. Still looking for Klonopin but understanding of this ticket writer's concerns with prescribing this medication. States she is struggling to fall asleep at night. Reports her sleep is good once she falls asleep. Discussed various sleep aides including Benadryl, Trazodone, Seroquel, and Melatonin but client endorsed side effects to all. This ticket writer ultimately agreed to low dose Ambien. Client is less tearful, less visibly anxious, less dramatic. Looks to be improving even though she may not fully realize it. Started discussing discharge today. Expect she will be ready for discharge tomorrow or Monday. Review of Systems Constitutional: Denies: fever, chills, weakness, weight change Eyes: Denies: eye pain, vision change Ears, Nose, Throat: Denies: ear pain, throat pain, dental pain, hearing loss, congestion Cardiovascular: Denies: chest pain, palpitations, dyspnea on exertion Respiratory: Denies: cough, dyspnea, wheezes Gastrointestinal: Denies: abdominal pain, nausea, vomiting, diarrhea, constipation Musculoskeletal: Denies: joint swelling, joint pain Neurological: Denies: headache, weakness, numbness, memory loss Objective: Exam Patient orientation: Yes Person, Yes Time, Yes Place Level of alertness: Alert Patient appearance: Appropriate, Well Groomed Behavior: calm, cooperative Psychomotor activity: Normal Eye contact: Maintains Eye Contact Mood description: Depressed Affect description: congruent with mood Speech pattern: Normal rate, Normal rhythm, Normal tone Speech volume: Normal Thought process: Linear, Goal Oriented Thought content: Yes Suicidal ideation, Yes Homicidal ideation, No Overt delusions Perceptual disturbances: No Auditory hallucinations, No Visual hallucinations Judgment: Fair Insight: Partial Results - Vital Signs Vital Signs: Temp Pulse Resp BP Pulse Ox 97.4 F L 88 18 119/81 95 06/22/17 09:00 06/22/17 09:00 06/22/17 09:00 06/22/17 09:00 06/18/17 16:46 Assessment and Plan (1) Bipolar disorder with depression Current visit: No Status: Acute Plan: Continue hospitalization, Close observation, Suicide Precautions per unit protocol, Encourage participation in unit milieu, Group Therapy, Monitor sleep, Monitor appetite Risks, benefits, side effects, alternatives discussed w/pt: Yes Patient agreeable to treatment: Yes (2) Post traumatic stress disorder (PTSD) Current visit: Yes Status: Acute Plan: Continue hospitalization, Close observation, Suicide Precautions per unit protocol, Encourage participation in unit milieu, Group Therapy, Monitor sleep, Monitor appetite Risks, benefits, side effects, alternatives discussed w/pt: Yes Patient agreeable to treatment: Yes Consult Discharge Plan - Plan Referrals: Doni Fisher [facility] [Outside] - 07/18/17 10:00 am (The above appointment is with Valorie Byrd for outpatient mental health counseling services. This is the first available appointment. You may contact the office regularly to check for cancellations that may allow you to be seen sooner.) Gonzalo Lopez CNP [Advanced Practice Nurse] - 07/21/17 3:00 pm (The above appointment is with Macie Lopez for outpatient psychiatric assessment and medication management services. Please arrived 10 minutes early to complete the registration process. Please bring your photo ID and insurance card. This is the first available new patient appointment. You may contact the office regularly to check for cancellations that may allow you to be seen sooner.)
[2017-06-22] MEDS: Divalproex (12 HR) 500 MG TABLET PO SCH (21:46)
[2017-06-22] MEDS: Artificial Tears SOLN 15 ML BOTTLE BOTH EYES PRN (21:47)
[2017-06-23] MEDS: Nicotine 21 MG PATCH.TD24 TD SCH (09:17)
[2017-06-23] MEDS: Divalproex (12 HR) 250 MG TABLET PO SCH (09:18)
[2017-06-23] MEDS: Cholecalciferol (D-3) 1,000 UNIT TABLET PO SCH (09:19)
[2017-06-23] MEDS: *HR* OxyCODONE Immed Rel 15 MG TABLET PO PRN ×4 (09:19→21:26)
--- NOTE | 2017-06-23 11:56 | Psychiatry Progress Note ---
Date of Encounter: 06/23/17 Time of Encounter: 11:52 Subjective Interval history: Client states she is doing better but she still did not sleep well last night. Thought Ambien would be more effective. Wants one more night at an increased dose. Mood has improved. Just had a group on PTSD so she is experiencing some anxiety over her past but she seems in control. No outbursts. Now denying all HI. Fleeting SI but she is future oriented. Client feels she would be safe for discharge tomorrow if she gets some sleep and continues to feel as improved tomorrow morning as she does today. Will plan for discharge tomorrow. Review of Systems Constitutional: Denies: fever, chills, weakness, weight change Eyes: Denies: eye pain, vision change Ears, Nose, Throat: Denies: ear pain, throat pain, dental pain, hearing loss, congestion Cardiovascular: Denies: chest pain, palpitations, dyspnea on exertion Respiratory: Denies: cough, dyspnea, wheezes Gastrointestinal: Denies: abdominal pain, nausea, vomiting, diarrhea, constipation Musculoskeletal: Denies: joint swelling, joint pain Neurological: Denies: headache, weakness, numbness, memory loss Objective: Exam Patient orientation: Yes Person, Yes Time, Yes Place Level of alertness: Alert Patient appearance: Appropriate, Well Groomed Behavior: calm, cooperative Psychomotor activity: Normal Eye contact: Maintains Eye Contact Mood description: Anxious Affect description: congruent with mood Speech pattern: Normal rate, Normal rhythm, Normal tone Speech volume: Normal Thought process: Linear, Goal Oriented Thought content: Yes Suicidal ideation, No Homicidal ideation, No Overt delusions Perceptual disturbances: No Auditory hallucinations, No Visual hallucinations Judgment: Fair Insight: Partial Results - Vital Signs Vital Signs: Temp Pulse Resp BP Pulse Ox 98.0 F 93 16 106/72 95 06/23/17 09:00 06/23/17 09:00 06/23/17 09:00 06/23/17 09:00 06/18/17 16:46 Assessment and Plan (1) Bipolar disorder with depression Current visit: No Status: Acute Plan: Continue hospitalization, Close observation, Suicide Precautions per unit protocol, Encourage participation in unit milieu, Group Therapy, Monitor sleep, Monitor appetite Risks, benefits, side effects, alternatives discussed w/pt: Yes Patient agreeable to treatment: Yes (2) Post traumatic stress disorder (PTSD) Current visit: Yes Status: Acute Plan: Continue hospitalization, Close observation, Suicide Precautions per unit protocol, Encourage participation in unit milieu, Group Therapy, Monitor sleep, Monitor appetite Risks, benefits, side effects, alternatives discussed w/pt: Yes Patient agreeable to treatment: Yes Consult Discharge Plan - Plan Referrals: Doni Fisher [facility] [Outside] - 07/18/17 10:00 am (The above appointment is with Valorie Byrd for outpatient mental health counseling services. This is the first available appointment. You may contact the office regularly to check for cancellations that may allow you to be seen sooner.) Gonzalo Lopez CNP [Advanced Practice Nurse] - 07/21/17 3:00 pm (The above appointment is with Macie Lopez for outpatient psychiatric assessment and medication management services. Please arrived 10 minutes early to complete the registration process. Please bring your photo ID and insurance card. This is the first available new patient appointment. You may contact the office regularly to check for cancellations that may allow you to be seen sooner.)
[2017-06-23] MEDS: Ibuprofen 400 MG TABLET PO PRN (15:36)
[2017-06-23] MEDS: Divalproex (12 HR) 500 MG TABLET PO SCH (21:24)
[2017-06-23] MEDS: Fluticasone Propionate Nasal 50 MCG/SPRAY BOTTLE NS PRN (21:27)
[2017-06-23] MEDS: Artificial Tears SOLN 15 ML BOTTLE BOTH EYES PRN (21:27)
[2017-06-24] MEDS: *HR* OxyCODONE Immed Rel 15 MG TABLET PO PRN ×2 (07:17→11:33)
[2017-06-24] MEDS: Nicotine 21 MG PATCH.TD24 TD SCH (08:23)
[2017-06-24] MEDS: Cholecalciferol (D-3) 1,000 UNIT TABLET PO SCH (08:24)
[2017-06-24] MEDS: Divalproex (12 HR) 250 MG TABLET PO SCH (08:24)
[2017-06-24 09:14] VITALS: BP 100/75
--- NOTE | 2017-06-24 11:14 | Discharge Summary ---
Date of Encounter: 06/24/17 Time of Encounter: 11:05 Diagnosis - Discharge Diagnosis (1) Bipolar disorder with depression Status: Acute (2) Post traumatic stress disorder (PTSD) Status: Acute Medications - Discharge Medications Prescriptions: DULoxetine [Cymbalta] 60 mg PO DAILY #60 capsule. Divalproex (12 HR) [Depakote (12 HR)] 1,500 mg PO HS 03/19/16 [History] Doxepin [Sinequan] 100 mg PO HS 03/19/16 [History] Levothyroxine [Synthroid] 100 mcg PO QAM 03/19/16 [History] Oxycodone HCl 15 mg PO QID PRN 03/19/16 [History] Cyclobenzaprine [Flexeril] 10 mg PO HS 04/18/17 [History] Ergocalciferol (VITAMIN D2) [Vitamin D] 400 unit PO DAILY 04/18/17 [History] Fluticasone Propionate Nasal [Flonase] 50 mcg NS DAILY PRN 04/18/17 [History] Metoclopramide HCl 5 mg PO BID 04/18/17 [History] Pantoprazole Sodium 40 mg PO DAILY 04/18/17 [History] Divalproex (12 HR) [Depakote (12 HR)] 250 mg PO QAM 06/18/17 [History] hydrOXYzine HCl [Hydroxyzine HCl] 25 mg PO TID 06/18/17 [History] DULoxetine [Cymbalta] 60 mg PO DAILY #60 capsule. 06/24/17 [Rx] 3 Allergy/AdvReac Type Severity Reaction Status Date / Time diphenhydramine AdvReac See Verified 04/18/17 20:13 [From Benadryl] Comments Provider Date of admission: 06/18/17 16:50 Primary care physician: PCP NONE Discharging clinician: Suellen Caro Assessment and Plan - Patient/Caregiver Discharge Instructions Activity: resume usual activities as tolerated Diet: regular diet - Follow up Plan Follow up with: Doni Fisher [facility] [Outside] - 07/18/17 10:00 am (The above appointment is with Valorie Byrd for outpatient mental health counseling services. This is the first available appointment. You may contact the office regularly to check for cancellations that may allow you to be seen sooner.) Gonzalo Lopez CNP [Advanced Practice Nurse] - 07/21/17 3:00 pm (The above appointment is with Macie Lopez for outpatient psychiatric assessment and medication management services. Please arrived 10 minutes early to complete the registration process. Please bring your photo ID and insurance card. This is the first available new patient appointment. You may contact the office regularly to check for cancellations that may allow you to be seen sooner.) Functional capacity at discharge: independent ambulation Overall status at discharge: Stable Disposition: Home, Self-Care Hospital Course Hospital course: Ms. Power is a 57 year old female who was admitted for SI. Also developed HI toward her peers while she was on the unit. Cymbalta was added to her home medications with good clinical effect. She was also started on Ambien for sleep. Client states she slept really well with the Ambien last night. In a great mood this morning. Client reports last night and this morning is the best she has felt in a long time. Looks bright. Future oriented. Making plans. Denies SI/HI. No evidence of psychosis. Linked with outpatient providers and has follow-up in June. Ready for discharge. - Time Spent with Patient Total time spent providing and/or coordinating discharge services: Quality - Multiple Antipsychotics Patient discharged on 2 or more antipsychotic medications: No Procedures - Procedures Procedures: Medication Management, Crisis Stabilization, Supportive Therapy, Group Therapy Mental Status Exam - Mental Status Exam Patient orientation: Yes Person, Yes Time, Yes Place Level of alertness: Alert Patient appearance: Appropriate, Well Groomed Behavior: calm, cooperative Psychomotor activity: Normal Eye contact: Maintains Eye Contact Mood description: Euthymic/stable Affect description: congruent with mood, full range Speech pattern: Normal rate, Normal rhythm, Normal tone Speech Volume: Normal Thought process: Linear, Goal Oriented Thought Content: No Suicidal ideation, No Homicidal ideation, No Overt delusions Perceptual Disturbances: No Auditory hallucinations, No Visual hallucinations Judgment: Fair Insight: Partial
== END 2017-06-24 11:55 | disposition home or self-care (01) | DRG 753 ==
LOC: EMEROO 12:09 → 1ANU 16:50
PROVIDERS: ADMIT Psychiatry & Neurology Psychiatry; ATTEND Psychiatry & Neurology Psychiatry

== ENCOUNTER 2017-10-11 23:47 | Inpatient (IN) ==
--- NOTE | 2017-10-11 23:51 | Emergency Department Note ---
Disposition Clinical Impression: Suicidal ideation Bipolar disorder Qualifiers: Active/Remission status: currently active Current bipolar episode type: manic Current episode severity: severe Psychotic features: without psychotic features Qualified Code(s): F31.13 - Bipolar disorder, current episode manic without psychotic features, severe Disposition: Admitted As Inpatient Condition: Fair Forms: ED Satisfaction Letter Time of Disposition: 02:37 Psych HPI - General Chief Complaint: ED Psychiatric Symptoms Stated Complaint: suicidal Time Seen by Provider: 10/11/17 23:51 Source: patient Mode of arrival: ambulatory Limitations: no limitations Nursing Notes Reviewed: Yes Vital Signs Reviewed: Yes - History of Present Illness HPI Narrative: 57-year-old female with history of suicidal ideation, bipolar disorder, multiple psychiatric admissions, presents complaining of anxiety depression and thoughts of hurting herself, she mentions that she would ingest pills attempted self-harm's in the past, patient states that she was just admitted due to seizure disorder up to [facility] a week ago, she was discharged uneventfully, since that time she has been feeling more depressed, she takes care of her elderly mom and dad at her home. She denies visual or auditory hallucinations, denies chest pain, abdominal pain, headache, shortness of breath. Pt complaint: suicidal ideation, feels depressed Duration: constant History of similar episodes: No Improves with: none Worsens with: none - Related Data Home Medications Medication Instructions Recorded Confirmed Cholecalciferol (Vitamin D3) 2 tab PO DAILY 10/12/17 10/12/17 [Vitamin D3] Cyclobenzaprine [Flexeril] 10 mg PO HS 10/12/17 10/12/17 DULoxetine [Cymbalta] 60 mg PO DAILY 10/12/17 10/12/17 Doxepin [Sinequan] 100 mg PO HS 10/12/17 10/12/17 Levothyroxine [Synthroid] 100 mcg PO DAILY 10/12/17 10/12/17 Metoclopramide HCl [Metoclopramide 1 mg PO BID 10/12/17 10/12/17 HCl Odt] Multivitamin [Multivitamins] 1 tab PO DAILY 10/12/17 10/12/17 OXcarbazepine [Trileptal] 300 mg PO BID 10/12/17 10/12/17 Oxycodone HCl [Oxycodone HCl ER] 15 mg PO PRN PRN MDD 90mg 10/12/17 10/12/17 Pantoprazole Sodium [Protonix] 40 mg PO DAILY 10/12/17 10/12/17 Zolpidem [Ambien] 1 tab PO HS 10/12/17 10/12/17 clonazePAM [Klonopin] 1 mg PO TID PRN MDD 3mg 10/12/17 10/12/17 lamoTRIgine [Lamotrigine] 25 mg PO DAILY 10/12/17 10/12/17 Allergies Allergy/AdvReac Type Severity Reaction Status Date / Time diphenhydramine AdvReac See Verified 10/03/17 16:42 [From Pamela] Comments All systems ED: reviewed and negative except as stated. Review of Systems: As Per HPI Constitutional: Denies: fever, chills Eyes: Denies: eye pain ENT ED: Denies: ear pain Cardiovascular: Denies: chest pain Respiratory: Denies: cough Gastrointestinal: Denies: abdominal pain, nausea Genitourinary: Denies: urgency Musculoskeletal: Denies: back pain Integumentary: Denies: rash Neurological: Denies: headache Psychiatric: Reports: as per HPI, anxiety, depression, suicidal thoughts. Denies: homicidal thoughts, auditory hallucinations, visual hallucinations Endocrine: Denies: fatigue Past Medical History - Past Medical History Attestation: Yes The following information was validated with the patient. Source: patient Medical history: Reports: thyroid disease Psychiatric history: Reports: bipolar, depression, prior suicide attempt, previous psychiatric hospitalization - Social History Smoking Status: Former smoker Smokeless Tobacco Status: No Alcohol use: Reports: none Drug use: Reports: cocaine Physical Exam - General Limitations: no limitations General appearance: anxious - Eye Eye exam: Present: normal appearance - ENT ENT exam: normal exam, normal oropharynx - Neck Neck exam: Present: normal inspection - Chest Chest inspection: Present: normal inspection - Respiratory Respiratory exam: Present: normal lung sounds bilaterally - Cardiovascular Cardiovascular exam: Present: regular rate, normal rhythm - Abdominal Exam Abdominal exam: Present: soft, Non-Tender - Extremities Exam Extremities exam: Present: normal inspection, full ROM - Neurological Exam Neurological exam: Present: alert, oriented X3, CN II-XII intact, normal gait. Absent: motor sensory deficit - Psychiatric Psychiatric exam: Present: depressed, agitated, anxious, flat affect, suicidal ideation Course Course Narrative: 57-year-old female with suicidal ideation, we have medical clearance psychiatric labs, monitor chest x-ray she did have a pneumonia that she did have this during her inpatient visit. However at this time, she has normal vital signs no infectious symptoms at this time. - Reevaluation(s) Reevaluation #1: Patient is medically clear for psychiatric evaluation, do feel that she is depressed and has positive suicidal ideation. Reevaluation #2: Admittd to Dr Mejía, Psychiatry Time: 02:48 Vital Signs Temperature 97.6 F 10/11/17 23:48 Pulse Rate 113 10/11/17 23:48 Respiratory Rate 16 10/11/17 23:48 Blood Pressure 122/81 10/11/17 23:48 O2 Sat by Pulse Oximetry 95 10/11/17 23:48 Temperature 97.6 F 10/11/17 23:48 Pulse Rate 113 10/11/17 23:48 Respiratory Rate 16 10/11/17 23:48 Blood Pressure 122/81 10/11/17 23:48 O2 Sat by Pulse Oximetry 95 10/11/17 23:48 Oxygen Delivery Oxygen Delivery Room Air Psych - Lab Data Result diagrams: 10/12/17 00:28 10/12/17 00:28 Lab Results 10/12/17 10/12/17 10/12/17 Range/Units 00:08 00:08 00:28 WBC 6.7 (4.3-11.1) K/mcL RBC 4.76 (3.82-4.97) M/mcL Hgb 14.6 (11.5-15.4) g/dL Hct 44.4 (35.3-44.9) % MCV 93.3 (83.0-100.0) fL MCH 30.7 (28.0-33.3) pg MCHC 32.9 (31.6-35.5) g/dL RDW 14.9 H (11.5-14.5) % Plt Count 234 (140-400) K/mcL MPV 10.7 (9.4-12.4) fL Immature Gran % 0.3 (0-4) % Seg Neutrophils % 39.6 % Lymphocytes % 40.5 % Monocytes % 18.5 % Eosinophils % 0.8 % Basophils % 0.3 % Neutrophils # 2.7 (1.6-8.9) K/mcL Lymphocytes # 2.7 (0.6-4.6) K/mcL Monocytes # 1.2 (0.0-1.3) K/mcL Eosinophils # 0.1 (0.0-0.6) K/mcL Basophils # 0.0 (0.0-0.2) K/mcL Platelet Estimate Normal (Normal) Sodium (136-145) mEq/L Potassium (3.5-5.1) mEq/L Chloride (98-107) mEq/L Carbon Dioxide (23-29) mEq/L BUN (6-20) mg/dL Creatinine (0.60-1.20) mg/dL Est GFR ( Amer) (> 60) Est GFR (Non-Af Amer) (> 60) BUN/Creatinine Ratio (6-26) Glucose (70-105) mg/dL Calculated Osmolality (280-300) Calcium (8.6-10.3) mg/dL TSH (0.340-5.600) mcIU/mL Urine Color Dark Yellow (Yellow) Urine Clarity Cloudy A (Clear) Urine pH 6.0 (5.0-8.0) pH Units Ur Specific Roby 1.028 H (1.010-1.025) Urine Protein 30 H (Neg-Trace) mg/dL Urine Glucose (UA) Normal (Normal) mg/dL Urine Ketones Negative (Negative) mg/dL Urine Blood Negative (Negative) Urine Nitrite Negative (Negative) Urine Bilirubin Small H (Negative) Urine Urobilinogen Normal (Normal) mg/dL Ur Leukocyte Esterase Moderate H (Negative) Urine Microscopic RBC 5-15 H (0-3) per hpf Urine Microscopic WBC 5-15 H (0-3) per hpf Ur Squamous Epith Cells Many H (None-Few) per lpf Calcium Oxalate Crystal Present Urine Bacteria None Seen (None-Few) per hpf Hyaline Casts Moderate H (None-Few) per lpf Salicylates (15.0-30.0) mg/dL Urine Opiates Screen Positive H (Puxetx=784) ng/mL Acetaminophen (10-20) mcg/mL Ur Barbiturates Screen Negative (Psaovj=938) ng/mL Ur Phencyclidine Scrn Negative (Cutoff=25) ng/mL Ur Amphetamines Screen Negative (Ncisvs=6681) ng/mL U Benzodiazepines Scrn Positive H (Rmgpwf=722) ng/mL Urine Cocaine Screen Positive H (Cutoff= 300) ng/mL U Marijuana (THC) Screen Negative (Cutoff = 50) ng/mL Ethyl Alcohol (Less than 10) mg/dL 10/12/17 Range/Units 00:28 WBC (4.3-11.1) K/mcL RBC (3.82-4.97) M/mcL Hgb (11.5-15.4) g/dL Hct (35.3-44.9) % MCV (83.0-100.0) fL MCH (28.0-33.3) pg MCHC (31.6-35.5) g/dL RDW (11.5-14.5) % Plt Count (140-400) K/mcL MPV (9.4-12.4) fL Immature Gran % (0-4) % Seg Neutrophils % % Lymphocytes % % Monocytes % % Eosinophils % % Basophils % % Neutrophils # (1.6-8.9) K/mcL Lymphocytes # (0.6-4.6) K/mcL Monocytes # (0.0-1.3) K/mcL Eosinophils # (0.0-0.6) K/mcL Basophils # (0.0-0.2) K/mcL Platelet Estimate (Normal) Sodium 133 L (136-145) mEq/L Potassium 3.7 (3.5-5.1) mEq/L Chloride 100 (98-107) mEq/L Carbon Dioxide 25 (23-29) mEq/L BUN 18 (6-20) mg/dL Creatinine 0.92 (0.60-1.20) mg/dL Est GFR ( Amer) > 60 (> 60) Est GFR (Non-Af Amer) > 60 (> 60) BUN/Creatinine Ratio 20 (6-26) Glucose 113 H (70-105) mg/dL Calculated Osmolality 279 L (280-300) Calcium 10.1 (8.6-10.3) mg/dL TSH 2.142 (0.340-5.600) mcIU/mL Urine Color (Yellow) Urine Clarity (Clear) Urine pH (5.0-8.0) pH Units Ur Specific Roby (1.010-1.025) Urine Protein (Neg-Trace) mg/dL Urine Glucose (UA) (Normal) mg/dL Urine Ketones (Negative) mg/dL Urine Blood (Negative) Urine Nitrite (Negative) Urine Bilirubin (Negative) Urine Urobilinogen (Normal) mg/dL Ur Leukocyte Esterase (Negative) Urine Microscopic RBC (0-3) per hpf Urine Microscopic WBC (0-3) per hpf Ur Squamous Epith Cells (None-Few) per lpf Calcium Oxalate Crystal Urine Bacteria (None-Few) per hpf Hyaline Casts (None-Few) per lpf Salicylates < 2.5 L (15.0-30.0) mg/dL Urine Opiates Screen (Lenmxb=906) ng/mL Acetaminophen < 10 L (10-20) mcg/mL Ur Barbiturates Screen (Urmxxt=974) ng/mL Ur Phencyclidine Scrn (Cutoff=25) ng/mL Ur Amphetamines Screen (Nwyskq=4221) ng/mL U Benzodiazepines Scrn (Bmtfwl=362) ng/mL Urine Cocaine Screen (Cutoff= 300) ng/mL U Marijuana (THC) Screen (Cutoff = 50) ng/mL Ethyl Alcohol < 10 (Less than 10) mg/dL Psychiatric Medical Clearance - Medical Clearance Checklist Does the patient have a NEW psychiatric condition?: No Any abnormalities indicating possible medical illness?: No Any history of medical issues?: No Medical History: No Social History Section defined Any abnormal vital signs prior to transfer?: No Current Vitals: Last Vital Signs Temp 97.6 F 10/11/17 23:48 Pulse 113 10/11/17 23:48 Resp 16 10/11/17 23:48 BP 122/81 10/11/17 23:48 Pulse Ox 95 10/11/17 23:48 Is the patient intoxicated or cognitively impaired?: No Psychiatric Lab Panel: Drug Levels and Toxicity 10/12/17 10/12/17 00:08 00:28 Urine Opiates Screen Positive H Acetaminophen < 10 L Ur Barbiturates Screen Negative Ur Phencyclidine Scrn Negative Ur Amphetamines Screen Negative U Benzodiazepines Scrn Positive H Urine Cocaine Screen Positive H U Marijuana (THC) Screen Negative Ethyl Alcohol < 10 Any abnormalities on the physical exam?: No Any abnormal labs?: Yes Abnormal Labs: Abnormal lab results RDW 14.9 % (11.5-14.5) H 10/12/17 00:28 Sodium 133 mEq/L (136-145) L 10/12/17 00:28 Glucose 113 mg/dL (70-105) H 10/12/17 00:28 Calculated Osmolality 279 (280-300) L 10/12/17 00:28 Urine Clarity Cloudy (Clear) A 10/12/17 00:08 Ur Specific Roby 1.028 (1.010-1.025) H 10/12/17 00:08 Urine Protein 30 mg/dL (Neg-Trace) H 10/12/17 00:08 Urine Bilirubin Small (Negative) H 10/12/17 00:08 Ur Leukocyte Esterase Moderate (Negative) H 10/12/17 00:08 Urine Microscopic RBC 5-15 per hpf (0-3) H 10/12/17 00:08 Urine Microscopic WBC 5-15 per hpf (0-3) H 10/12/17 00:08 Ur Squamous Epith Cells Many per lpf (None-Few) H 10/12/17 00:08 Hyaline Casts Moderate per lpf (None-Few) H 10/12/17 00:08 Salicylates < 2.5 mg/dL (15.0-30.0) L 10/12/17 00:28 Urine Opiates Screen Positive ng/mL (Tmiejc=848) H 10/12/17 00:08 Acetaminophen < 10 mcg/mL (10-20) L 10/12/17 00:28 U Benzodiazepines Scrn Positive ng/mL (Tlhbcf=094) H 10/12/17 00:08 Urine Cocaine Screen Positive ng/mL (Cutoff= 300) H 10/12/17 00:08 Does the patient require durable medical equiptment?: No Is the patient ambulatory?: Yes Is the patient a fall risk?: No Has the patient been medically cleared?: Yes Any acute medical condition require Tx prior to transfer?: No Statement of Medical Clearance: I have evaluated the patient, reviewed diagnostic information, and certify that the patient's medical condition is sufficiently stable that transfer to the psychiatric unit does not pose a significant risk of deterioration.
[2017-10-12 00:22] LABS: Bilirubin,Urine Small (Negative); Blood,Urine Negative (Negative); Clarity,Urine Cloudy (Clear); Color,Urine Dark Yellow (Yellow); Glucose,Urine (UA) Normal (Normal); Ketones,Urine Negative (Negative); Leukocyte Esterase,Urine Moderate (Negative); Nitrite,Urine Negative (Negative); Protein,Urine 30 mg/dL (Neg-Trace); Specific Gravity,Urine 1.028 (1.010-1.025); Urobilinogen,Urine Normal (Normal)
[2017-10-12 00:23] LABS: Amphetamine Screen,Urine Negative ng/mL (Cutoff=1000); Barbiturate Screen,Urine Negative ng/mL (Cutoff=200); Benzodiazepines Screen,Urine Positive ng/mL (Cutoff=200); Cannabinoid Screen,Urine Negative ng/mL (Cutoff = 50); Cocaine Screen,Urine Positive ng/mL (Cutoff= 300); Opiate Screen,Urine Positive ng/mL (Cutoff=300); Phencyclidine Screen,Urine Negative ng/mL (Cutoff=25)
[2017-10-12 00:24] LABS: Bacteria,Urine None Seen per hpf (None-Few); Squamous Epithelial Cell,Urine Many per lpf (None-Few)
[2017-10-12 00:36] LABS: Calcium Oxalate Crystals,Urine Present; Hyaline Casts,Urine Moderate per lpf (None-Few)
[2017-10-12 00:41] LABS: Basophils % 0.3 %; Eosinophils # 0.1 K/mcL (0.0-0.6); Eosinophils % 0.8 %; Hematocrit 44.4 % (35.3-44.9); Hemoglobin 14.6 g/dL (11.5-15.4); Immature Granulocytes % 0.3 % (0-4); Lymphocytes # 2.7 K/mcL (0.6-4.6); Lymphocytes % 40.5 %; Mean Corpuscular HGB Conc 32.9 g/dL (31.6-35.5); Mean Corpuscular Hemoglobin 30.7 pg (28.0-33.3); Mean Corpuscular Volume 93.3 fL (83.0-100.0); Mean Platelet Volume 10.7 fL (9.4-12.4); Monocytes # 1.2 K/mcL (0.0-1.3); Monocytes % 18.5 %; Platelet Count 234 K/mcL (140-400); Red Blood Count 4.76 M/mcL (3.82-4.97); Red Cell Distribution Width 14.9 % (11.5-14.5); Segmented Neutrophils % 39.6 %
[2017-10-12 00:42] LABS: Neutrophils # 2.7 K/mcL (1.6-8.9)
[2017-10-12 00:56] LABS: Platelet Estimate Normal (Normal)
[2017-10-12 01:04] LABS: Acetaminophen < 10 mcg/mL (10-20); BUN/Creatinine Ratio 20 (6-26); Blood Urea Nitrogen 18 mg/dL (6-20); Calcium 10.1 mg/dL (8.6-10.3); Carbon Dioxide 25 mEq/L (23-29); Chloride 100 mEq/L (98-107); Ethanol < 10 mg/dL (Less than 10); Glucose 113 mg/dL (70-105); Osmolality,Calculated 279 (280-300); Potassium 3.7 mEq/L (3.5-5.1); Salicylate < 2.5 mg/dL (15.0-30.0); Sodium 133 mEq/L (136-145); eGFR For African Americans > 60 (> 60); eGFR For Non-African Americans > 60 (> 60)
[2017-10-12 01:17] LABS: Thyroid Stimulating Hormone 2.142 mcIU/mL (0.340-5.600)
[2017-10-12] MEDS ORDERED: *HR* OxyCODONE Immed Rel 5 MG TABLET PO ONE (01:17)
--- NOTE | 2017-10-12 01:39 | Emergency Department Note ---
START Narrative - START START: I examined this patient and my medical decision-making was reviewed with the Resident Physician. I agree with the documented findings, disposition and treatment plan as described except to the extent set forth below. 57 yo F here for depression, anxiety, suicidal ideation with thoughts of ingesting pills to kill herself. will work up here in ER for clearance. she still is wanting to kill herself. recent admission to [facility] for seizures. no problems with that at this time. vss afebrile await psych eval
[2017-10-12] MEDS ORDERED: *HR* LORazepam 2 MG/ML VIAL IM PRN (03:23)
[2017-10-12] MEDS ORDERED: Haloperidol Lactate 5 MG/ML VIAL IM PRN (03:26)
[2017-10-12] MEDS ORDERED: MOM Conc 10 ML UD.LIQ PO PRN (03:30)
[2017-10-12] MEDS ORDERED: Mag Hydrox/Al Hydrox/Simeth 30 ML UDC PO PRN (03:31)
[2017-10-12] MEDS ORDERED: Baclofen 10 MG TABLET PO PRN (03:46)
[2017-10-12] MEDS ORDERED: Ondansetron Oral Soln 2 MG/2.5 ML ORAL.SYG PO PRN (03:47)
--- NOTE | 2017-10-12 08:07 | Psychiatry History & Physical ---
Date of Encounter: 10/12/17 Time of Encounter: 08:00 History of Present Illness Medicare Admission Attestation: For traditional Medicare patients the provided hospital inpatient services are reasonable and necessary and in the case of services not specified as inpatient -only under 42 CFR 419.22 (n), that they are appropriately provided as inpatient services in accordance 42 CFR 412.3. For Critical Access Hospital the patient may reasonably be expected to be discharged or transferred to a hospital within 96 hours after admission to the Critical Access Hospital. Admitted From: Hospital to Hospital Transfer Plans for Post Hospital Care: Home History of Present Illness: Pt is a 57 yo, , female, marriedx1, x1, with 3 children (31,28 ,16) who presents for mood and depression with over dose attempt and elevated ammonia level from depakote. Depakote was stopped and lamictal was started, will continue to titrate the medicaiton. Pt noted thoughts that she wants to kill myself, because my boyfriend broke up with me. Pt noted she felt safe and comfortable on the unit. Pt was in agreement with treatment plan. Pt noted that she is doing better today. Pt noted she slept 8-10 hours last night. Pt noted her appetite is reduced. Pt rated her depression a 5, on a scale of zero to ten with ten being the worst and zero being none. Pt rate her anxiety a "0, on the same scale. Pt denied any current visual or auditory hallucinations. Pt denied any thoughts to harm herself or anyone else. Pt noted she lives with her parents in [place], [place]. PT noted both her parents are alive and well. Pt noted that her highest level of education is [employer] with some college. Pt noted she is currently unemployed on SSDI. Pt note multiple previous inpt psychiatric hospitalizations. Pt noted multiple previous suicide attempts "last was 2006." Pt denied any family suicide hx. PT denies any family mental health illness. PT agreed to continue medication for management of Bipolar Disorder D/O. Pt was educated on the risks benefits and side-effects of these medications including no medication, pt was in agreement. Pt noted recent exacerbation of medication noncompliance Pt denied any hx of HIV, TBIs. Pt is pos Hep C, when i was in 4th grade I had three then it subsided Tobacco: 1/2 ppd Alcohol: Denies Street: I relapsed on cocaine yesterday. Caffeine: 2-3 per day 1.Interval hx 2.Continue current medications 3.Review current labs 4.Pt had an opportunity to ask questions and discuss current treatment plan. 5.Supportive therapy was provided 6.Pt encouraged to consider group or individual therapy 7.Pt was in agreement with treatment plan. 8.Pt was educated on the risks benefits and side effects of current medications. Past Med Surg Social Fam HX - Past Medical History Medical history: hepatitis, thyroid disease - Social History Smoking Status: Current every day smoker Smokeless Tobacco Status: No Alcohol use: none Drug use: cocaine, opiates, other Medications & Allergies Cholecalciferol (Vitamin D3) [Vitamin D3] 2 tab PO DAILY 10/12/17 [History] Cyclobenzaprine [Flexeril] 10 mg PO HS 10/12/17 [History] DULoxetine [Cymbalta] 60 mg PO DAILY 10/12/17 [History] Doxepin [Sinequan] 100 mg PO HS 10/12/17 [History] Levothyroxine [Synthroid] 100 mcg PO DAILY 10/12/17 [History] Metoclopramide HCl [Metoclopramide HCl Odt] 1 mg PO BID 10/12/17 [History] Multivitamin [Multivitamins] 1 tab PO DAILY 10/12/17 [History] OXcarbazepine [Trileptal] 300 mg PO BID 10/12/17 [History] Oxycodone HCl [Oxycodone HCl ER] 15 mg PO PRN PRN MDD 90mg 10/12/17 [History] Pantoprazole Sodium [Protonix] 40 mg PO DAILY 10/12/17 [History] Zolpidem [Ambien] 1 tab PO HS 10/12/17 [History] clonazePAM [Klonopin] 1 mg PO TID PRN MDD 3mg 10/12/17 [History] lamoTRIgine [Lamotrigine] 25 mg PO DAILY 10/12/17 [History] 3 Allergy/AdvReac Type Severity Reaction Status Date / Time diphenhydramine AdvReac See Verified 10/03/17 16:42 [From Benadryl] Comments Review of Systems Constitutional: Denies: fever, chills, weakness, weight change Eyes: Denies: eye pain, vision change Ears, Nose, Throat: Denies: ear pain, throat pain, dental pain, hearing loss, congestion Cardiovascular: Denies: chest pain, palpitations, dyspnea on exertion Respiratory: Denies: cough, dyspnea, wheezes Gastrointestinal: Denies: abdominal pain, nausea, vomiting, diarrhea, constipation Genitourinary female: Denies: urgency, dysuria, frequency, abnormal menses, dyspareunia Musculoskeletal: Denies: joint swelling, joint pain Integumentary: Denies: rash, lesions, pruritus Neurological: Denies: headache, weakness, numbness, memory loss Psychiatric: Reports: depression, anxiety, abnormal sleep pattern, suicidal ideation, anhedonia, mood swings Endocrine: Denies: fatigue, heat or cold intolerance Hematologic/Lymphatic: Denies: easy bruising, lymphadenopathy Allergic/Immunologic: Denies: urticaria, itchy eyes Exam - HEENT Head exam IM: Present: atraumatic Eye exam IM: Present: EOMI, normal appearance, PERRL ENT exam IM: Present: normal exam - Neurological Neurological exam: Present: CN II-XII intact - Respiratory Respiratory exam IM: Present: CTAB - GI/Abdominal GI/Abdominal exam IM: Present: normal bowel sounds, soft. Absent: tenderness - Extremities Extremities exam IM: Present: full ROM - Skin Skin exam IM: Present: dry, warm - Constitutional Vitals: Temp Pulse Resp BP Pulse Ox 97.0 F L 84 18 103/61 95 10/12/17 03:49 10/12/17 03:49 10/12/17 03:49 10/12/17 03:49 10/11/17 23:48 General appearance: age & developmentally appropriate, well-groomed, well- nourished - Musculoskeletal Gait: normal Station: relaxed Strength & Tone: normal for patient - Psychiatric Patient Orientation: Yes Person, Yes Time, Yes Place Level of alertness: Alert Behavior: calm, cooperative Psychomotor activity: Normal Eye Contact: Maintains Eye Contact Mood Description: Depressed Affect description: congruent with mood, blunted, flat Speech Volume: Soft/Quiet Speech pattern: normal rate, normal rhythm, normal tone, fluent, spontaneous Language & Vocabulary: consistent with education Thought Process: Linear, Goal Oriented Thought Content: Yes Suicidal ideation, No Homicidal ideation, No Overt delusions Perceptual Disturbances: No Auditory hallucinations, No Visual hallucinations Attention Span Ability: Capable of Focused Attention Memory Description: Grossly Intact Patient Reliability: Reliable Historian Fund of knowledge: Yes abstraction ability, Yes average, Yes aware of current events Intelligence Estimate: Average Judgment: Limited Insight: Partial Results - Labs Labs: Laboratory Last Values WBC 6.7 K/mcL (4.3-11.1) 10/12/17 00:28 RBC 4.76 M/mcL (3.82-4.97) 10/12/17 00:28 Hgb 14.6 g/dL (11.5-15.4) 10/12/17 00:28 Hct 44.4 % (35.3-44.9) 10/12/17 00:28 MCV 93.3 fL (83.0-100.0) 10/12/17 00:28 MCH 30.7 pg (28.0-33.3) 10/12/17 00: MCHC 32.9 g/dL (31.6-35.5) 10/12/17 00: RDW 14.9 % (11.5-14.5) H 10/12/17 00:28 Plt Count 234 K/mcL (140-400) 10/12/17 00: MPV 10.7 fL (9.4-12.4) 10/12/17 00:28 Immature Gran % 0.3 % (0-4) 10/12/17 00:28 Seg Neutrophils % 39.6 % 10/12/17 00:28 Lymphocytes % 40.5 % 10/12/17 00:28 Monocytes % 18.5 % 10/12/17 00:28 Eosinophils % 0.8 % 10/12/17 00: Basophils % 0.3 % 10/12/17 00:28 Neutrophils # 2.7 K/mcL (1.6-8.9) 10/12/17 00:28 Lymphocytes # 2.7 K/mcL (0.6-4.6) 10/12/17 00:28 Monocytes # 1.2 K/mcL (0.0-1.3) 10/12/17 00:28 Eosinophils # 0.1 K/mcL (0.0-0.6) 10/12/17 00:28 Basophils # 0.0 K/mcL (0.0-0.2) 10/12/17 00:28 Platelet Estimate Normal (Normal) 10/12/17 00:28 Sodium 133 mEq/L (136-145) L 10/12/17 Potassium 3.7 mEq/L (3.5-5.1) 10/12/17 Chloride 100 mEq/L (98-107) 10/12/17 Carbon Dioxide 25 mEq/L (23-29) 10/12/17 BUN 18 mg/dL (6-20) 10/12/17 Creatinine 0.92 mg/dL (0.60-1.20) 10/12/17 Est GFR ( Amer) > 60 (> 60) 10/12/17 Est GFR (Non-Af Amer) > 60 (> 60) 10/12/17 BUN/Creatinine Ratio 20 (6-26) 10/12/17 Glucose 113 mg/dL (70-105) H 10/12/17 Calculated Osmolality 279 (280-300) L 10/12/17 Calcium 10.1 mg/dL (8.6-10.3) 10/12/17 TSH 2.142 mcIU/mL (0.340-5.600) 10/12/17 Urine Color Dark Yellow (Yellow) 10/12/17 00: Urine Clarity Cloudy (Clear) A 10/12/17 00: Urine pH 6.0 pH Units (5.0-8.0) 10/12/17: Ur Specific Pyote 1.028 (1.010-1.025) H 10/12/17 00: Urine Protein 30 mg/dL (Neg-Trace) H 10/12/17 00: Urine Glucose (UA) Normal mg/dL (Normal) 10/12/17 00: Urine Ketones Negative mg/dL (Negative) 10/12/17 00: Urine Blood Negative (Negative) 10/12/17 00: Urine Nitrite Negative (Negative) 10/12/17: Urine Bilirubin Small (Negative) H 10/12/17 00:08 Urine Urobilinogen Normal mg/dL (Normal) 10/12/17 00:08 Ur Leukocyte Esterase Moderate (Negative) H 10/12/17 00:08 Urine Microscopic RBC 5-15 per hpf (0-3) H 10/12/17 00: Urine Microscopic WBC 5-15 per hpf (0-3) H 10/12/17 00:08 Ur Squamous Epith Cells Many per lpf (None-Few) H 10/12/17 00:08 Calcium Oxalate Crystal Present 10/12/17 00:08 Urine Bacteria None Seen per hpf (None-Few) 10/12/17 00:08 Hyaline Casts Moderate per lpf (None-Few) H 10/12/17 00:08 Salicylates < 2.5 mg/dL (15.0-30.0) L 10/12/17 00:28 Urine Opiates Screen Positive ng/mL (Yvovtv=278) H 10/12/17 00:08 Acetaminophen < 10 mcg/mL (10-20) L 10/12/17 00:28 Ur Barbiturates Screen Negative ng/mL (Oxykye=001) 10/12/17 00:08 Ur Phencyclidine Scrn Negative ng/mL (Cutoff=25) 10/12/17 00:08 Ur Amphetamines Screen Negative ng/mL (Xevfnq=0569) 10/12/17 00:08 U Benzodiazepines Scrn Positive ng/mL (Wkevln=816) H 10/12/17 00:08 Urine Cocaine Screen Positive ng/mL (Cutoff= 300) H 10/12/17 00:08 U Marijuana (THC) Screen Negative ng/mL (Cutoff = 50) 10/12/17 00:08 Ethyl Alcohol < 10 mg/dL (Less than 10) 10/12/17 00:28 Assessment and Plan (1) Suicidal ideation Current visit: Yes Status: Acute Plan: Admit inpatient for safety and stabilization, Close observation, Suicide Precautions per unit protocol, Encourage participation in unit milieu, Group Therapy Risks, benefits, side effects, alternatives discussed w/pt: Yes Patient agreeable to treatment: Yes Plans for Post Hospital Care: Home (2) Bipolar disorder with depression Current visit: No Status: Acute Plan: Admit inpatient for safety and stabilization, Close observation, Suicide Precautions per unit protocol, Encourage participation in unit milieu, Group Therapy, Monitor sleep, Monitor appetite Risks, benefits, side effects, alternatives discussed w/pt: Yes Patient agreeable to treatment: Yes Plans for Post Hospital Care: Home (3) Anxiety Current visit: No Status: Acute Plan: Admit inpatient for safety and stabilization, Close observation, Suicide Precautions per unit protocol, Encourage participation in unit milieu, Group Therapy, Monitor sleep, Monitor appetite Risks, benefits, side effects, alternatives discussed w/pt: Yes Patient agreeable to treatment: Yes Plans for Post Hospital Care: Home (4) Antisocial personality disorder Current visit: No Status: Acute Plan: Admit inpatient for safety and stabilization, Close observation, Suicide Precautions per unit protocol, Encourage participation in unit milieu, Group Therapy, Monitor sleep, Monitor appetite Risks, benefits, side effects, alternatives discussed w/pt: Yes Patient agreeable to treatment: Yes Plans for Post Hospital Care: Home (5) Post traumatic stress disorder (PTSD) Current visit: No Status: Acute Plan: Admit inpatient for safety and stabilization, Close observation, Suicide Precautions per unit protocol, Encourage participation in unit milieu, Group Therapy, Monitor sleep, Monitor appetite Risks, benefits, side effects, alternatives discussed w/pt: Yes Patient agreeable to treatment: Yes Plans for Post Hospital Care: Home
[2017-10-12] MEDS: Multivit/Ca/Min/Fe/FA 1 TAB TABLET PO SCH (09:26)
[2017-10-12] MEDS: OXcarbazepine 150 MG TABLET PO SCH ×2 (09:27→19:52)
[2017-10-12] MEDS: Nicotine 21 MG PATCH.TD24 TD SCH (09:28)
[2017-10-12] MEDS: clonazePAM 1 MG TABLET PO PRN (11:47)
[2017-10-12] MEDS: lamoTRIgine 25 MG TABLET PO SCH (19:54)
[2017-10-13] MEDS: Multivit/Ca/Min/Fe/FA 1 TAB TABLET PO SCH (08:06)
[2017-10-13] MEDS: OXcarbazepine 150 MG TABLET PO SCH ×2 (08:06→19:48)
[2017-10-13] MEDS: Nicotine 21 MG PATCH.TD24 TD SCH (08:07)
--- NOTE | 2017-10-13 11:11 | Psychiatry Progress Note ---
Date of Encounter: 10/13/17 Time of Encounter: 11:00 Subjective Interval history: Pt is a 57 yo, , female, marriedx1, x1, with 3 children (31,28 ,16) who presents for mood and depression with over dose attempt and elevated ammonia level from depakote. Depakote was stopped and lamictal was started, will continue to titrate the medicaiton. Pt noted recent excessive cocaine use. Pt noted she felt safe and comfortable on the unit. Pt was in agreement with treatment plan. Pt noted that she is doing better today. Pt noted she slept better 8-10 hours last night. Pt noted her appetite is better. Pt rated her depression a 8, on a scale of zero to ten with ten being the worst and zero being none. Pt rate her anxiety a "8....I want my pain medications, on the same scale. Pt denied any current visual or auditory hallucinations. Pt noted passive thoughts to harm herself but noted she has no plan at this time and would not do anything on the unit. Pt jokingly noted she had thoughts to harm her provider due to not perscribing her her opioids. Pt was reeducated on addition and substance abuse and noted she still wanted her opioid medicaitons however understood where the provider was coming from. PT agreed to continue medication for management of Bipolar Disorder D/O. Pt was educated on the risks benefits and side-effects of these medications including no medication, pt was in agreement. Pt noted recent exacerbation of medication noncompliance Pt denied any hx of HIV, TBIs. Pt is pos Hep C, when i was in 4th grade I had three then it subsided Tobacco: 1/2 ppd Alcohol: Denies Street: I relapsed on cocaine yesterday. Caffeine: 2-3 per day 1.Interval hx 2.Continue current medications 3.Review current labs 4.Pt had an opportunity to ask questions and discuss current treatment plan. 5.Supportive therapy was provided 6.Pt encouraged to consider group or individual therapy 7.Pt was in agreement with treatment plan. 8.Pt was educated on the risks benefits and side effects of current medications. Review of Systems Constitutional: Denies: fever, chills, weakness, weight change Eyes: Denies: eye pain, vision change Ears, Nose, Throat: Denies: ear pain, throat pain, dental pain, hearing loss, congestion Cardiovascular: Denies: chest pain, palpitations, dyspnea on exertion Respiratory: Denies: cough, dyspnea, wheezes Gastrointestinal: Denies: abdominal pain, nausea, vomiting, diarrhea, constipation Musculoskeletal: Denies: joint swelling, joint pain Neurological: Denies: headache, weakness, numbness, memory loss Psychiatric: Reports: depression, anxiety, abnormal sleep pattern, suicidal ideation, anhedonia, mood swings Results - Vital Signs Vital Signs: Temp Pulse Resp BP Pulse Ox 7.6 F L 75 16 121/74 95 10/13/17 09:00 10/13/17 09:00 10/13/17 09:00 10/13/17 09:00 10/11/17 23:48 Assessment and Plan (1) Suicidal ideation Current visit: Yes Status: Acute Plan: Continue hospitalization, Close observation, Suicide Precautions per unit protocol, Encourage participation in unit milieu, Group Therapy, Monitor sleep, Monitor appetite Risks, benefits, side effects, alternatives discussed w/pt: Yes Patient agreeable to treatment: Yes (2) Bipolar disorder with depression Current visit: No Status: Acute Plan: Continue hospitalization, Close observation, Suicide Precautions per unit protocol, Encourage participation in unit milieu, Group Therapy, Monitor sleep, Monitor appetite Risks, benefits, side effects, alternatives discussed w/pt: Yes Patient agreeable to treatment: Yes (3) Anxiety Current visit: No Status: Acute Plan: Continue hospitalization, Close observation, Suicide Precautions per unit protocol, Encourage participation in unit milieu, Group Therapy, Monitor sleep, Monitor appetite Risks, benefits, side effects, alternatives discussed w/pt: Yes Patient agreeable to treatment: Yes (4) Antisocial personality disorder Current visit: No Status: Acute Plan: Continue hospitalization, Close observation, Suicide Precautions per unit protocol, Encourage participation in unit milieu, Group Therapy, Monitor sleep, Monitor appetite Risks, benefits, side effects, alternatives discussed w/pt: Yes Patient agreeable to treatment: Yes (5) Post traumatic stress disorder (PTSD) Current visit: No Status: Acute Plan: Continue hospitalization, Close observation, Suicide Precautions per unit protocol, Encourage participation in unit milieu, Group Therapy, Monitor sleep, Monitor appetite Risks, benefits, side effects, alternatives discussed w/pt: Yes Patient agreeable to treatment: Yes Consult Discharge Plan - Plan Referrals: SID Lopez [Other] - 10/27/17 9:20 am (The above appointment is Macie Lopez CNP for outpatient psychiatric assessment and medication management services ) Doni Conroy [facility] [Outside] - 10/18/17 3:00 pm (The above appointment is with Valorie Byrd for outpatient counseling services.) Psychiatry Exam - Constitutional Vitals: Temp Pulse Resp BP Pulse Ox 7.6 F L 75 16 121/74 95 10/13/17 09:00 10/13/17 09:00 10/13/17 09:00 10/13/17 09:00 10/11/17 23:48 General appearance: age & developmentally appropriate, well-groomed, well- nourished - Musculoskeletal Gait: normal Station: relaxed Strength & Tone: normal for patient - Psychiatric Patient Orientation: Yes Person, Yes Time, Yes Place Level of alertness: Alert Behavior: calm, cooperative, agitated Psychomotor activity: Normal Eye Contact: Minimal Contact Mood Description: Euthymic/stable, Irritable Affect description: congruent with mood, anxious Speech Volume: Normal Speech pattern: normal rate, normal rhythm, normal tone, fluent, spontaneous Language & Vocabulary: consistent with education Thought Process: Linear, Goal Oriented Thought Content: Yes Suicidal ideation, Yes Homicidal ideation, No Overt delusions Perceptual Disturbances: No Auditory hallucinations, No Visual hallucinations Attention Span Ability: Capable of Sustained Attention Memory Description: Grossly Intact Patient Reliability: Reliable Historian Fund of knowledge: Yes abstraction ability, Yes aware of current events Intelligence Estimate: Average Judgment: Limited Insight: Partial
[2017-10-13] MEDS: clonazePAM 1 MG TABLET PO PRN ×2 (12:14→17:36)
[2017-10-13] MEDS: traMADol 50 MG TABLET PO PRN (15:09)
[2017-10-13] MEDS: Ibuprofen 400 MG TABLET PO PRN (17:36)
[2017-10-13] MEDS: lamoTRIgine 25 MG TABLET PO SCH (19:48)
[2017-10-13] MEDS: *HR* LORazepam 1 MG TABLET PO PRN (19:52)
[2017-10-14] MEDS: clonazePAM 1 MG TABLET PO PRN ×3 (06:14→20:27)
[2017-10-14] MEDS: traMADol 50 MG TABLET PO PRN ×3 (07:07→20:26)
[2017-10-14] MEDS: Nicotine 21 MG PATCH.TD24 TD SCH (08:44)
[2017-10-14] MEDS: OXcarbazepine 150 MG TABLET PO SCH ×2 (08:45→20:25)
[2017-10-14] MEDS: Multivit/Ca/Min/Fe/FA 1 TAB TABLET PO SCH (08:45)
--- NOTE | 2017-10-14 14:56 | Psychiatry Progress Note ---
Date of Encounter: 10/14/17 Time of Encounter: 14:45 Subjective Interval history: The patient is a 57-year-old white female. Chief complaint I want to go home today. I used cocaine and I should not have done. History of present illness: The patient has been noncompliant with outpatient treatment most notably she relapsed she has a history of cocaine dependence and saw friend of hers and did cocaine. Then one the emergency room she threatened to take an overdose of her medicines. In the past 24 hours patient is attempted to hang herself she has taken a bed sheet and trying to put it over a ceiling fan or some other object in an effort to try and attempt suicide by hanging. The patient acknowledges this but cited external factors as to why she did that. Nonetheless for her safety she was locked out of her room and had to spend the night in the in the quiet room so that she could be observed. The plan is still to discharge the patient on Monday. Nonetheless her requests to go back home today were discussed at length The patient is not wanted to release to her treatment meant providers or family that she has a positive urine for cocaine. The patient reported that her jaw pain is improved on tramadol. I will make no changes to her medication regimen when I told her that she was not going to be discharged today she became upset and left Review of Systems Psychiatric: Reports: depression, anxiety, abnormal sleep pattern, suicidal ideation, anhedonia, mood swings Results - Vital Signs Vital Signs: Temp Pulse Resp BP Pulse Ox 97.3 F L 75 18 113/79 95 10/14/17 09:00 10/14/17 09:00 10/14/17 09:00 10/14/17 09:00 10/11/17 23:48 Assessment and Plan (1) Cocaine dependence, uncomplicated Current visit: Yes Status: Acute Plan: Continue hospitalization, Close observation, Secure weapons Risks, benefits, side effects, alternatives discussed w/pt: Yes Patient agreeable to treatment: Yes (2) Patient's noncompliance with other medical treatment and regimen Current visit: Yes Status: Chronic Plan: Continue hospitalization, Close observation, Suicide Precautions per unit protocol, Encourage participation in unit milieu, Secure weapons Risks, benefits, side effects, alternatives discussed w/pt: Yes Patient agreeable to treatment: Yes (3) Suicidal ideation Current visit: Yes Status: Acute Plan: Continue hospitalization, Close observation, Suicide Precautions per unit protocol, Secure weapons Risks, benefits, side effects, alternatives discussed w/pt: Yes Patient agreeable to treatment: Yes (4) Bipolar disorder with depression Current visit: No Status: Acute Plan: Continue hospitalization, Close observation, Suicide Precautions per unit protocol, Encourage participation in unit milieu, Group Therapy Risks, benefits, side effects, alternatives discussed w/pt: Yes Patient agreeable to treatment: Yes (5) Antisocial personality disorder Current visit: No Status: Chronic Plan: Continue hospitalization, Close observation, Family/Supportive other meeting Risks, benefits, side effects, alternatives discussed w/pt: Yes Patient agreeable to treatment: Yes Consult Discharge Plan - Plan Referrals: SID Lopez [Other] - 10/27/17 9:20 am (The above appointment is Macie Lopez CNP for outpatient psychiatric assessment and medication management services ) [facility] [Outside] - 10/18/17 3:00 pm (The above appointment is with Valorie Byrd for outpatient counseling services.) Psychiatry Exam - Constitutional Vitals: Temp Pulse Resp BP Pulse Ox 97.3 F L 75 18 113/79 95 10/14/17 09:00 10/14/17 09:00 10/14/17 09:00 10/14/17 09:00 10/11/17 23:48 General appearance: age & developmentally appropriate, well-groomed, unkempt - Musculoskeletal Gait: normal Station: relaxed Strength & Tone: normal for patient - Psychiatric Patient Orientation: Yes Person, Yes Time, Yes Place Level of alertness: Alert Behavior: calm, cooperative Psychomotor activity: Normal Eye Contact: Minimal Contact Affect description: congruent with mood, full range Speech Volume: Soft/Quiet Speech pattern: normal rate, normal rhythm, normal tone, fluent, spontaneous Language & Vocabulary: consistent with education Thought Process: Linear, Goal Oriented Thought Content: Yes Suicidal ideation, No Homicidal ideation, No Overt delusions Perceptual Disturbances: No Auditory hallucinations, No Visual hallucinations Memory Description: Grossly Intact, Immediate Intact Fund of knowledge: Yes average Intelligence Estimate: Average Judgment: Limited Insight: Minimal
[2017-10-14] MEDS: *HR* LORazepam 1 MG TABLET PO PRN (15:24)
[2017-10-14] MEDS: lamoTRIgine 25 MG TABLET PO SCH (20:27)
[2017-10-15] MEDS: Ibuprofen 400 MG TABLET PO PRN (00:17)
[2017-10-15] MEDS: traMADol 50 MG TABLET PO PRN ×2 (06:36→11:56)
[2017-10-15] MEDS: clonazePAM 1 MG TABLET PO PRN ×2 (06:37→11:56)
[2017-10-15] MEDS: Nicotine 21 MG PATCH.TD24 TD SCH (08:25)
[2017-10-15] MEDS: OXcarbazepine 150 MG TABLET PO SCH (08:26)
[2017-10-15] MEDS: Multivit/Ca/Min/Fe/FA 1 TAB TABLET PO SCH (08:26)
[2017-10-15 09:20] VITALS: BP 137/80
--- NOTE | 2017-10-15 12:51 | Discharge Summary ---
Date of Encounter: 10/15/17 Time of Encounter: 12:05 Diagnosis - Discharge Diagnosis (1) Suicidal ideation Status: Acute (2) Bipolar disorder with depression Status: Acute (3) Anxiety Status: Acute (4) Antisocial personality disorder Status: Chronic (5) Post traumatic stress disorder (PTSD) Status: Acute Medications - Discharge Medications Cholecalciferol (Vitamin D3) [Vitamin D3] 800 mg PO DAILY 10/12/17 [History] Cyclobenzaprine [Flexeril] 10 mg PO HS 10/12/17 [History] Doxepin [Sinequan] 100 mg PO HS 10/12/17 [History] Duloxetine HCl [Cymbalta] 60 mg PO DAILY 10/12/17 [History] Levothyroxine [Synthroid] 100 mcg PO DAILY 10/12/17 [History] Metoclopramide HCl [Metoclopramide HCl Odt] 1 mg PO BID 10/12/17 [History] Multivitamin [Multivitamins] 1 tab PO DAILY 10/12/17 [History] OXcarbazepine [Oxcarbazepine] 300 mg PO BID 10/12/17 [History] Pantoprazole Sodium [Protonix] 40 mg PO DAILY 10/12/17 [History] Zolpidem [Ambien] 10 mg PO HS 10/12/17 [History] clonazePAM [Klonopin] 1 mg PO TID PRN MDD 3mg 10/12/17 [History] lamoTRIgine [Lamotrigine] 25 mg PO AD 10/12/17 [History] 3 Allergy/AdvReac Type Severity Reaction Status Date / Time diphenhydramine AdvReac See Verified 10/12/17 10:47 [From Pamela] Comments Provider Date of admission: 10/12/17 14:04 Primary care physician: PCP NONE Discharging clinician: Parag Mejía Psychiatry Exam - Constitutional Vitals: Temp Pulse Resp BP Pulse Ox 97.1 F L 71 18 137/80 95 10/15/17 09:00 10/15/17 09:00 10/15/17 09:00 10/15/17 09:00 10/11/17 23:48 General appearance: age & developmentally appropriate, well-groomed, well- nourished - Musculoskeletal Gait: normal Station: relaxed Strength & Tone: normal for patient - Psychiatric Patient Orientation: Yes Person, Yes Time, Yes Place Level of alertness: Alert Behavior: calm, cooperative Psychomotor activity: Normal Eye Contact: Maintains Eye Contact Mood Description: Euthymic/stable Affect description: congruent with mood, full range Speech Volume: Normal Speech pattern: normal rate, normal rhythm, normal tone, fluent, spontaneous Language & Vocabulary: consistent with education Thought Process: Linear, Goal Oriented Thought Content: No Suicidal ideation, No Homicidal ideation, No Overt delusions Perceptual Disturbances: No Auditory hallucinations, No Visual hallucinations Attention Span Ability: Capable of Focused Attention Memory Description: Grossly Intact Patient Reliability: Reliable Historian Fund of knowledge: Yes abstraction ability, Yes aware of current events Intelligence Estimate: Average Judgment: Limited Insight: Partial Hospital Course Hospital course: Ms. Power is a 57 year old female Time spent discussing smoking cessation with patient: 3 to 10 minutes Does patient wish to continue nicotine replacement upon disc: No - Time Spent with Patient Total time spent providing and/or coordinating discharge services: Greater than 30 minutes Assessment and Plan - Patient/Caregiver Discharge Instructions Activity: resume usual activities as tolerated Diet: regular diet - Follow up Plan Follow up with: SID Lopez [Other] - 10/27/17 9:20 am (The above appointment is Macie Lopez CNP for outpatient psychiatric assessment and medication management services ) [facility] [Outside] - 10/18/17 3:00 pm (The above appointment is with Valorie Byrd for outpatient counseling services.) Functional capacity at discharge: independent ambulation Overall status at discharge: patient is back to baseline Disposition: Home, Self-Care Quality - Multiple Antipsychotics Patient discharged on 2 or more antipsychotic medications: No - Justification Documentation of: Other justification (Pt is not on 2 antipsychotics) Procedures - Procedures Procedures: Medication Management, Crisis Stabilization, Supportive Therapy, Group Therapy, Psychoeducational Therapy
== END 2017-10-15 13:35 | disposition home or self-care (01) | DRG 753 ==
LOC: EMEROO 23:47 → INTOOBSV 10-12 02:51 → 1ANU 10-12 02:51 → SUATTDRO 10-12 14:04
PROVIDERS: ADMIT General Practice; ATTEND Psychiatry & Neurology Forensic Psychiatry